=== PATIENT | male | born 1955 | race Caucasian/White ===

== ENCOUNTER 2020-04-23 08:34 | Outpatient (CLI) | payer SELFPAY ==
--- NOTE | 2020-04-23 09:01 | CT_ITS ---
WS: [id number] CT CHEST TECHNIQUE: Contrast enhanced CT of the chest with coronal and sagittal reformatted images. CLINICAL INFORMATION: SHORTNESS OF BREATH, HYPOXEMIA COMPARISON: None. DLP: 632.[address] scans at [facility] use at least one of these dose optimization techniques: automat ed exposure control; mA and/or kV adjustment per patient size (includes targeted exams where dose is matched to clinical indication); or iterative reconstruction. FINDINGS: Large left pleural effusion with left to right mediastinal shift. Opacification of the entire left he mithorax. Mediastinal shift left to right. Left to right shift of the heart. Large heterogeneously en hancing soft tissue mass along the anterior left upper lobe and mediastinum extending into the left t horacic inlet. This extends deep to the sternum. Findings are presumably due to neoplasm with necroti c and conglomerate lymphadenopathy. Masslike nodular lesions about the periphery of the left lower lung. Left lower lobe is collapsed med ially. Left mainstem bronchus is compressed and occluded. Mediastinal mass measures approximately 5.2 x 7.1 x 6.1 CM. Right lung is well aerated. Spiculated presumed neoplasm in the right upper lobe measuring 2.2 x 1.9 CM. Additional numerous smaller noncalcified nodules throughout the right lung, too many to count. Mo st are subcentimeter in size and consistent with metastatic disease. Fibrotic appearing infiltrate in the right middle lobe. Right mainstem bronchus is patent. Partially visualized left heterogeneously enhancing clavicular and supraclavicular lymphadenopathy. H eterogeneous enhancing left axillary masslike lymphadenopathy. Moderate aortic atheromatous disease. Thoracic aorta is patent. Proximal main pulmonary arteries are normal. Visualized thoracic spine appears normal. Notified MARISOL Meyer at 04/23/2020 11:00AM. Findings discussed with the patient and Dr. Garcia. After discussion with the patient decision was m zana to transfer to the [facility] [place] emergency room. 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 Prelim inary findings were discussed with Dr. Tan prior to arrival. 04/23/2020 11:[address]/CT chest w con* [id number] IMPRESSION: 1. Large left pleural effusion with complete opacification left hemithorax. Mo derate left right mediastinal shift described above. 2. Heterogeneous necrotic appearing mass in the left upper lobe extending into the anterior mediastinum and deep to the sternum most consistent with neoplasm with necrotic masslike lymphadenopathy. 3. Additional scattered nodular areas of metastatic implants about the periphe ry of the left lung. 4. Left supraclavicular and infraclavicular lymphadenopathy. Left axillary mas slike lymphadenopathy. 5. Spiculated mass in the right upper lobe measuring 2.2 x 1.9 cm presumably m alignancy. 6. Additional numerous noncalcified nodules throughout the right lung presumab ly metastatic most of which are subcentimeter in size. 7. Occlusion of the left mainstem bronchus.
[2020-04-23 10:14] LABS: Blood Urea Nitrogen 19 mg/dL (8-23); Glomerular Filtration Rate 85.2 mL/min (90-130)
[2020-04-23] MEDS: iohexol 300 mg/mL 100 mL Btl IV (10:16)
== END 2020-04-23 08:35 | disposition home or self-care (01) ==
PROVIDERS: Radiology Neuroradiology; Visit Provider Nurse Practitioner
DX: R91.8 Other nonspecific abnormal finding of lung field (principal); R06.02 Shortness of breath; R09.02 Hypoxemia; J90 Pleural effusion, not elsewhere classified; R59.1 Generalized enlarged lymph nodes
CPT/HCPCS: 71260; 82565; 84520; Q9967

== ENCOUNTER 2020-04-23 11:15 | Emergency (ER) | payer SELFPAY ==
[2020-04-23] VITALS (7 sets, daily range): BP systolic 117–150; BP diastolic 83–123; PULSE 79–103; RESP 20–40; TEMP 36.4; O2SAT 93–98; BMI 19.8
--- NOTE | 2020-04-23 11:34 | ECG_ITS ---
Measurements Intervals [place] Rate: 97 P: 65 NM: 148 QRS: 61 QRSD: 90 T: 58 QT: 337 QTc: 429 SINUS RHYTHM POSSIBLE LEFT ATRIAL ENLARGEMENT [-0.1mV P WAVE IN V1/V2] LOW QRS VOLTAGE IN PRECORDIAL LEADS [QRS DEFLECTION < 1.0 mV IN CHEST LEADS] NONSPECIFIC T-WAVE ABNORMALITY No previous ECG available for comparison Electronically Signed On 04-23-2020 18:55:10 CDT by Dariel Bates M.D. [email or web address]
--- NOTE | 2020-04-23 11:35 | W.ED.SOB ---
HPI - SOB/Dyspnea General: Chief Complaint: Shortness of Breath/Dyspnea Stated Complaint: SOB Time Seen by Provider: 04/23/20 11:20 History of Present Illness: HPI Narrative: This patient is a 64-year-old male who presents today with shortness of breath. He describes increasing shortness of breath over the past several weeks and the symptoms have been very severe in the past 2 to 3 days. He denies any prior history of lung problems but is a lifelong smoker. He has been to the clinic a couple of times and treated with antibiotics which did not help his symptoms. He said over the winter he has had a pretty constant runny nose and cough. He admits to weight loss over the past couple of months. He denies night sweats or fevers. He has had diarrhea since taking the antibiotics off and on but denies any other change in bowel habits. No trouble urinating. No rashes. He does not take any prescription medicines on a routine basis. He has been given the antibiotics, and albuterol inhaler, prednisone during the course of this illness. He had a chest x-ray yesterday and a chest CT today showing a large pleural effusion and probably some masses in the left lung. MD elicited complaint: shortness of breath and cough Onset (ago): week(s) (3) Associated symptoms: Deny chest pain or palpitations Review of Systems General: Reports: 10 or more systems reviewed and unremarkable except in HPI and below Const: Reports: change in appetite, change in weight and fatigue; Denies: night sweats ENMT: Denies: odynophagia Card: Denies: chest pain, palpitations, edema or swelling of feet/ankles Resp: Reports: dyspnea and productive cough GI: Reports: diarrhea : Denies: difficulty urinating Musc: Denies: back pain or extremity swelling Neuro: Denies: headache(s) or weakness in extremities PFS ED PFSH: Social History Smoking and tobacco status: current every day smoker Physical Exam Const: COMMON NORMALS: no acute distress, patient oriented x3, no limitations and alert GENERAL APPEARANCE: cooperative and comfortable NUTRITIONAL APPEARANCE: underweight HENMT: HEAD & SCALP: normal to inspection FACE & SINUS: normal facial exam Eye: GENERAL EYE: appearance normal, both eyes and all related structures Neck/C-Spine: COMMON NORMALS: supple, no meningeal signs and no JVD Chest: COMMONS NORMALS: normal inspection of the chest Resp: EFFORT & INSPECTION: Yes tachypneic and Yes uses accessory muscles AUSCULTATION: rhonchi (Right lung field) and breath sounds absent (Left lung field, few scattered wheezes in the upper lobe) Cardio: COMMON NORMALS: no JVD, regular rhythm and No murmurs present (Cardio) RATE: tachycardic RHYTHM: regular rhythm GI: COMMON NORMALS: Normal to inspection, nondistended, normoactive bowel sounds present, Soft to palpation and non-tender INSPECTION: Yes normal to inspection AUSCULTATION: Yes normoactive bowel sounds PALPATION: Yes Soft to palpation Back/Pelvis: COMMON NORMALS: thoracic and lumbar spine normal to inspection Extremity: COMMON NORMALS: normal to inspection Neuro: COMMON NORMALS: patient oriented x3, moves all extremities, no focal motor deficits and no sensory deficits noted SENSORIUM/ORIENTATION: Yes alert MENINGEAL SIGNS: Yes no meningeal signs Psych: COMMON NORMALS: mental status grossly normal, cooperative and normal affect Skin: COMMON NORMALS: no rashes or lesions noted and turgor normal GENERAL SKIN EXAM: no rashes or lesions noted and turgor normal Course ED course: I reviewed the patient's CT scan from this morning. He has a almost complete white out of the left lung field with fluid. He also has a necrotic mass in the left upper lobe extending into the anterior mediastinum. Lymph nodes in the supra clavicular, infraclavicular, and axillary areas. And in the right lung he has a spiculated nodule in the right upper lobe and multiple noncalcified nodules throughout the right lung. These are most consistent with malignancy. I will page Dr. Mc to get recommendations for treatment. The patient probably needs a thoracentesis for palliation and obviously needs evaluation by oncology as well. Reevaluation(s): Reevaluation #1: Dr. Mc saw the patient in the ED and placed a drain. This will remain in and the patient will have to have it drained daily. Case management and the financial counselors spent quite a bit of time working with the patient to establish home health and follow-up. He does not have insurance and he is being evaluated for the [facility]iana program. We were unable to set up home health over the weekend so the patient will be returning to the ED on Sunday and Sunday to have the tube drained. Hopefully Sunday he will be able to have home health come and do that for him. He has an appointment to follow-up with Dr. Mc on Sunday. After the drainage she did feel quite a bit better. He had a little bit of discomfort but declined pain medicines. His sats were good and he did not want to stay in the hospital. We will let him go home and he understands that he should return if he feels worse, has worse shortening breath, fever or any other problems. The fluid was sent for pathology. Time: 17:07 Vital Signs: Vital signs: Vital Signs Temperature 97.5 F L 04/23/20 11:22 Pulse Rate 79 04/23/20 16:46 Respiratory Rate 20 H 04/23/20 16:46 Blood Pressure 117/83 04/23/20 16:24 Pulse Oximetry 96 04/23/20 16:46 MDM - SOB/Dyspnea Lab Data: Labs: Lab Results 04/23/20 04/23/20 04/23/20 Range/Units 11:55 11:55 11:55 WBC 12.3 H (4.0-10.0) 10^3/ uL RBC 3.58 L (4.1-5.3) 10^6/u L Hgb 11.2 L (11.7-16.6) g/dL Hct 35.2 L (42.0-52.0) % MCV 98.3 H (80-94) fL MCH 31.3 (28.0-34.0) pg MCHC 31.8 (30.0-36.0) g/dL RDW 12.8 (12.1-15.1) % Plt Count 250 (130-400) 10^3/c mm MPV 8.9 (7.4-10.4) fL Neut % (Auto) 81.7 % Lymph % (Auto) 8.2 % [place] % (Auto) 9.1 % Eos % (Auto) 0.2 % Baso % (Auto) 0.4 % Neut # (Auto) 10.0 H (1.8-7.7) 10^3/u L Lymph # (Auto) 1.0 (0.8-4.8) 10^3/u L [place] # (Auto) 1.1 H (0.2-0.9) 10^3/u L Eos # (Auto) 0.0 (0.0-0.8) 10^3/u L Baso # (Auto) 0.1 (0.0-0.1) 10^3/u L Nucleated RBC % (a uto) 0 % Nucleated RBCs # 0.0 /100WBC PT (10.5-13.3) SECO NDS INR (0.8-1.2) Sodium 136 (136-145) mmol/L Potassium 4.5 (3.5-5.1) mmol/L Chloride 96 L (98-107) mmol/L Carbon Dioxide 27 (22-29) mmol/L Anion Gap 17.5 (5-19) BUN 19 (8-23) mg/dL Creatinine 0.7 (0.7-1.2) mg/dL GFR Calculation 113.9 (90-130) mL/min Glucose 103 (65-115) mg/dL Calculated Osmolal ity 279 L (285-295) mOsm/k g Lactate 2.5 H (0.5-2.2) mmol/L Calcium 8.9 (8.5-10.5) mg/dL Total Bilirubin 0.3 (0.15-1.2) mg/dL AST 17 (0-40) U/L ALT 18 (0-41) U/L Alkaline Phosphata se 85 (40-130) IU/L Troponin T Baselin e (0-15) ng/mL Troponin T 120 Min [place] (0-15) ng/mL Delta Troponin T (0-10) ABS# NT-Pro-B Natriuret Pep 225 H (0-125) pg/mL Total Protein 6.4 L (6.6-8.7) g/dL Albumin 3.8 (3.5-5.2) g/dL Globulin 2.6 (1.3-4.6) g/dL Fluid Color (PALE YELLOW) Fluid Appearance (CLEAR) Fluid WBC /uL Fluid RBC (0-0) 10^3/uL Fld Polynuclear WB Cs # 10^3/uL Fld Polynuclear WB Cs % % Fl Mononucl WBCs # (Auto) 10^3/uL Fl Mononuclear % A uto % Fluid Albumin g/dL Pleural LDH U/L Pleural Glucose mg/dL 04/23/20 04/23/20 04/23/20 Range/Units 11:55 11:55 14:00 WBC (4.0-10.0) 10^3/ uL RBC (4.1-5.3) 10^6/u L Hgb (11.7-16.6) g/dL Hct (42.0-52.0) % MCV (80-94) fL MCH (28.0-34.0) pg MCHC (30.0-36.0) g/dL RDW (12.1-15.1) % Plt Count (130-400) 10^3/c mm MPV (7.4-10.4) fL Neut % (Auto) % Lymph % (Auto) % [place] % (Auto) % Eos % (Auto) % Baso % (Auto) % Neut # (Auto) (1.8-7.7) 10^3/u L Lymph # (Auto) (0.8-4.8) 10^3/u L [place] # (Auto) (0.2-0.9) 10^3/u L Eos # (Auto) (0.0-0.8) 10^3/u L Baso # (Auto) (0.0-0.1) 10^3/u L Nucleated RBC % (a uto) % Nucleated RBCs # /100WBC PT 15.00 H (10.5-13.3) SECO NDS INR 1.15 (0.8-1.2) Sodium (136-145) mmol/L Potassium (3.5-5.1) mmol/L Chloride (98-107) mmol/L Carbon Dioxide (22-29) mmol/L Anion Gap (5-19) BUN (8-23) mg/dL Creatinine (0.7-1.2) mg/dL GFR Calculation (90-130) mL/min Glucose (65-115) mg/dL Calculated Osmolal ity (285-295) mOsm/k g Lactate (0.5-2.2) mmol/L Calcium (8.5-10.5) mg/dL Total Bilirubin (0.15-1.2) mg/dL AST (0-40) U/L ALT (0-41) U/L Alkaline Phosphata se (40-130) IU/L Troponin T Baselin e 15 (0-15) ng/mL Troponin T 120 Min [place] (0-15) ng/mL Delta Troponin T (0-10) ABS# NT-Pro-B Natriuret Pep (0-125) pg/mL Total Protein (6.6-8.7) g/dL Albumin (3.5-5.2) g/dL Globulin (1.3-4.6) g/dL Fluid Color Red (PALE YELLOW) Fluid Appearance Cloudy (CLEAR) Fluid WBC 1161 /uL Fluid RBC 716 H (0-0) 10^3/uL Fld Polynuclear WB Cs # 0.466 10^3/uL Fld Polynuclear WB Cs % 40.200 % Fl Mononucl WBCs # (Auto) 0.695 10^3/uL Fl Mononuclear % A uto 59.800 % Fluid Albumin 2.6 g/dL Pleural LDH 992 U/L Pleural Glucose 22.0 mg/dL 04/23/20 Range/Units 14:28 WBC (4.0-10.0) 10^3/ uL RBC (4.1-5.3) 10^6/u L Hgb (11.7-16.6) g/dL Hct (42.0-52.0) % MCV (80-94) fL MCH (28.0-34.0) pg MCHC (30.0-36.0) g/dL RDW (12.1-15.1) % Plt Count (130-400) 10^3/c mm MPV (7.4-10.4) fL Neut % (Auto) % Lymph % (Auto) % [place] % (Auto) % Eos % (Auto) % Baso % (Auto) % Neut # (Auto) (1.8-7.7) 10^3/u L Lymph # (Auto) (0.8-4.8) 10^3/u L [place] # (Auto) (0.2-0.9) 10^3/u L Eos # (Auto) (0.0-0.8) 10^3/u L Baso # (Auto) (0.0-0.1) 10^3/u L Nucleated RBC % (a uto) % Nucleated RBCs # /100WBC PT (10.5-13.3) SECO NDS INR (0.8-1.2) Sodium (136-145) mmol/L Potassium (3.5-5.1) mmol/L Chloride (98-107) mmol/L Carbon Dioxide (22-29) mmol/L Anion Gap (5-19) BUN (8-23) mg/dL Creatinine (0.7-1.2) mg/dL GFR Calculation (90-130) mL/min Glucose (65-115) mg/dL Calculated Osmolal ity (285-295) mOsm/k g Lactate (0.5-2.2) mmol/L Calcium (8.5-10.5) mg/dL Total Bilirubin (0.15-1.2) mg/dL AST (0-40) U/L ALT (0-41) U/L Alkaline Phosphata se (40-130) IU/L Troponin T Baselin e (0-15) ng/mL Troponin T 120 Min [place] 12.51 (0-15) ng/mL Delta Troponin T -2.49 L (0-10) ABS# NT-Pro-B Natriuret Pep (0-125) pg/mL Total Protein (6.6-8.7) g/dL Albumin (3.5-5.2) g/dL Globulin (1.3-4.6) g/dL Fluid Color (PALE YELLOW) Fluid Appearance (CLEAR) Fluid WBC /uL Fluid RBC (0-0) 10^3/uL Fld Polynuclear WB Cs # 10^3/uL Fld Polynuclear WB Cs % % Fl Mononucl WBCs # (Auto) 10^3/uL Fl Mononuclear % A uto % Fluid Albumin g/dL Pleural LDH U/L Pleural Glucose mg/dL EKG Data^: EKG 1: EKG Interpretation Date: 04/23/20 EKG interpretation time: 11:45 Interpretation: EKG shows a sinus rhythm at 97. There is atrial enlargement. NE and QRS intervals are normal. QTc is normal. [place] is normal and there is no acute ST changes. Discharge Plan Discharge Patient Disposition: Home, Self-Care Clinical Impression: Large pleural effusion Lung cancer Qualifiers: Laterality: unspecified laterality Lung location: unspecified part of lung Qualified Code(s): C34.90 - Malignant neoplasm of unspecified part of unspecified bronchus or lung Condition: Stable Prescriptions: No Action No Known Home Medications RF: 0 Discharge Orders: Discharge Order (Routine); Ordered 04/23/20 Ordered By: Kusum Green Referrals: Fiona Mc MD [Physician] - 04/27/20 1:30 pm Discharge Diet: Usual diet Discharge Activity: Limit activity as instructed Patient Instructions: Pleural Effusion (ED) Activity Restrictions/Additional Instructions: Return to the ED tomorrow and Sunday to have the fluid drained. Hopefully home health will be set up to take care of it after that. Return to the ED if trouble breathing, pain, fever or any other new concerns. Discharge Date/Time: 04/23/20 16:51 Coding Level of Care Code ED Lemon Picker for Leonila Fwd Exam Comprehensive
[2020-04-23 12:05] LABS: Basophils # 0.1 10^3/uL (0.0-0.1); Basophils % 0.4 %; Eosinophils % 0.2 %; Hematocrit 35.2 % (42.0-52.0); Hemoglobin 11.2 g/dL (11.7-16.6); Lymphocytes % 8.2 %; Mean Corpuscular HGB Conc 31.8 g/dL (30.0-36.0); Mean Corpuscular Hemoglobin 31.3 pg (28.0-34.0); Mean Corpuscular Volume 98.3 fL (80-94); Mean Platelet Volume 8.9 fL (7.4-10.4); Monocytes # 1.1 10^3/uL (0.2-0.9); Monocytes % 9.1 %; Neutrophils % 81.7 %; Nucleated Red Blood Cells % 0 %; Platelet Count 250 10^3/cmm (130-400); Red Blood Count 3.58 10^6/uL (4.1-5.3); Red Cell Distribution Width 12.8 % (12.1-15.1); White Blood Count 12.3 10^3/uL (4.0-10.0)
[2020-04-23 12:15] LABS: INR 1.15 (0.8-1.2)
[2020-04-23 12:20] LABS: Lactate (Lactic Acid level) 2.5 mmol/L (0.5-2.2)
[2020-04-23 12:22] LABS: Alanine Aminotransferase 18 U/L (0-41); Albumin Level 3.8 g/dL (3.5-5.2); Alkaline Phosphatase 85 IU/L (40-130); Anion Gap 17.5 (5-19); Aspartate Amino Transferase 17 U/L (0-40); Blood Urea Nitrogen 19 mg/dL (8-23); Calcium 8.9 mg/dL (8.5-10.5); Carbon Dioxide 27 mmol/L (22-29); Chloride 96 mmol/L (98-107); Globulin 2.6 g/dL (1.3-4.6); Glomerular Filtration Rate 113.9 mL/min (90-130); Glucose 103 mg/dL (65-115); Osmolality Calculated 279 mOsm/kg (285-295); Potassium 4.5 mmol/L (3.5-5.1); Sodium 136 mmol/L (136-145); Total Bilirubin 0.3 mg/dL (0.15-1.2); Total Protein 6.4 g/dL (6.6-8.7)
[2020-04-23 12:24] LABS: Troponin(5th) Baseline 15 ng/mL (0-15)
[2020-04-23 12:43] LABS: NT Pro B Type Natriuretic Pept 225 pg/mL (0-125)
--- NOTE | 2020-04-23 12:55 | P.CONIM_ITS ---
Providers/Reason For Consult Consulting Physican/Specialty*: Pulmonary critical care medicine Reason for Consult*: Tension hydrothorax of the left side History of Present Illness History of Present Illness Hu Aguilera is a 64 year old male who presented to the hospital with worsening shortness of breath and radiologic abnormalities. The patient has an extensive history of smoking and he had given up smoking recently. The patient has been suffering from chronic cough that he has suffered for many years. Over the past 3 weeks or so the patient started having progressively worsening shortness of breath. The patient was initially treated for bronchitis however he did not have any significant improvement. The patient went to see his primary care provider yesterday and was ordered a chest x-ray. The patient presents today with radiologic abnormalities. The patient does not give any significant history of fever, night sweats, chills. No significant weight loss however he endorses loss of appetite. No history of hemoptysis. The patient had a CT scan of the chest performed today which revealed large left sided pleural effusion with mediastinal shift to the right. There is a large heterogeneous enhancing soft tissue mass along the anterior left upper lobe extending into the thoracic inlet. There is a masslike density in the left hilum with likely compression occlusion of left mainstem bronchus. There is an additional right upper lobe lung nodule which is spiculated and likely the same process. Patient also has left supraclavicular and axillary lymphadenopathy. Review of Systems Narrative: General: No fevers chills night sweats or fatigue Skin: No rash HEENT: No nasal congestion, rhinitis, sinusitis, sneezing, hoarseness of voice. Neck: There is no neck swelling, mass or swollen glands. Respiratory: Please see my HPI. Cardiovascular: No chest pain, palpitation, lower extremity edema Gastrointestinal: Patient is complaining of diarrhea Musculoskeletal: No joint pain or swelling, muscle weakness, morning stiffness, numbness or tingling. Neurological: Patient is awake alert and oriented x3, no paralysis, gross motor function is normal. Psychiatric: No anxiety or depression. Meds/Allergies Home Medications and Allergies Home Medications Medication Instructions Recorded Confirmed Last Taken Type No Known Home Medications 04/23/20 04/23/20 Unknown History Allergies Allergy/AdvReac Type Severity Reaction Status Date / Time No Known Allergies Allergy Verified 04/03/20 14:15 PFSH Acute PFSH: Social History Smoking and tobacco status: current every day smoker Vitals/I&O/Wt Last Vital Signs Temp 97.5 F L 04/23/20 11:22 Pulse 98 04/23/20 12:16 Resp 36 H 04/23/20 12:16 BP 132/99 04/23/20 12:16 Pulse Ox 98 04/23/20 12:16 Weight last 48 hrs Weight 138 lb Physical Exam Narrative: EXAM NARRATIVE: General: Patient is awake alert and oriented, in mild distress Neck: No JVD, palpable left supraclavicular lymphadenopathy. Lymph nodes are hard and appears to be fixed with underlying structure Respiratory: Inspection: No visible deformity of the chest wall Palpation: Trachea is deviated to the right, reduced expansion on the left side, minimal vocal fremitus on the left side Percussion: Stony dull to percussion on the left hemithorax Auscultation: Reduced breath sound in the left hemithorax, reduced vocal resonance in the same area, no wheezing or rhonchi on the right side Cardiovascular: Regular rate and rhythm, S1-S2 present, no murmur, no right ventricular heave, no peripheral edema. Abdomen: Soft, nontender, nondistended, positive bowel sound Musculoskeletal: No obvious joint deformity, normal gait. Skin: No rash, no evidence of erythema nodosum or multiforme. Neuro: Mental status is normal, no gross cranial nerve deficit, normal motor and coordination. Data Other Data: Other data: I have reviewed the patient's laboratory, microbiologic, radiologic data. The CT scan findings it is described in my HPI. Has mild leukocytosis however no definitive evidence of infection based on the history. A&P Assessment and plan (1) Large pleural effusion: The patient has left-sided pleural effusion and is most likely malignant. The patient has necrotic left anterior mediastinal and hilar lung mass as well as spiculated nodule on the right lung. The patient also has evidence of tension hydrothorax including mediastinal shift to the right side. This is important for several reasons. The presence of large left-sided pleural effusion is likely a combination of 2 processes. #1, the patient most likely has malignant pleural effusion and based on the CT scan it appears that there is external compression to the left mainstem bronchus. The presence of mediastinal shift represents that the pleural effusion is the primary pathology for the lung atelectasis or at least contributing to it. If the patient had lung atelectasis secondary to the mainstem bronchus compression the resultant pleural effusion would not cause the mediastinum to shift to the opposite side. I have discussed the care plan with the patient in detail. I have provided him with 3 options. #1 we perform a thoracentesis, send the fluid for cytology and discharge him home. This is likely to be complicated by reaccumulation of pleural effusion and shortness of breath. #2 we could get a pigtail catheter placed and as this pleural effusion is likely malignant the fluid will continue to accumulate and the patient will spend a significant duration of time in the hospital. The patient does not want to stay in the hospital so I have provided him with a third option. We have discussed putting in a Pleurx catheter which can be drained today and the patient can be discharged home and the fluid can be continue to be drained at home. The pleural fluid is likely to give us a diagnosis. As soon as we have a diagnosis the patient is likely going to need radiation therapy because of the left mainstem bronchus compression. After discussion, the patient has decided to go ahead with a Pleurx catheter placement today. He will follow-up with me early next week. At that time if we do not have a cytologic diagnosis I will perform a fine-needle aspiration of a supraclavicular or axillary lymph node. I have discussed the plan with the ED physician as well. Status: Acute Coding Level of Care Code Acute Pattern Maker for [facility] Diagnoses Large pleural effusion J90
[2020-04-23] MEDS: midazolam 1 mg/mL INJ 2 mL 2 MG IVP (13:24)
[2020-04-23] MEDS: fentaNYL 50 mcg/mL INJ 2mL IVP (13:27)
--- NOTE | 2020-04-23 14:09 | XRR_ITS ---
PROCEDURE INFORMATION: Exam: XR Chest, 1 View Exam date and time: 04/23/2020 2:26 PM Age: 64 years old Clinical indication: Device placement; Other: Chest tube; Additional info: Tube placement TECHNIQUE: Imaging protocol: XR of the chest Views: 1 view. COMPARISON: CT chest w con* [id number] 04/23/2020 10:24 AM FINDINGS: Lungs: Spiculated mass is seen in the right upper lobe between the 6th and 7th posterior rib. This finding is noncalcified and measures 23 mm x 26 mm. This finding corresponds to a mean spiculated mass seen on CT examination . This finding corresponds to lung cancer there is otherwise . No consolidation. Pleural space: Large left lower lobe pleural effusion. No pneumothorax. Heart/Mediastinum: Unremarkable. No cardiomegaly. Bones/joints: Unremarkable. XR/XR chest 1V portable [id number] IMPRESSION: 1. Stable spiculated mass right upper lobe likely lung cancer 2. Large left lower lobe pleural effusion
--- NOTE | 2020-04-23 14:26 | P.PCN_ITS ---
Procedure/Consent Time out: Time Out Performed: Yes Consent: Consent for Procedure: Consent obtained from patient Procedure Narrative: Name of the procedure: Left-sided Pleurx catheter placement Anesthesia: Moderate sedation Local: 1% lidocaine 13 mL. Description of the procedure: The patient was placed in right lateral position. Using the ultrasound a safe fluid pocket was identified in the left eighth in tercostal space in the midaxillary line. The site was marked. The patient was then prepared using sterile technique. 1% lidocaine was used to anesthetize the skin and subcutaneous tissue periosteum and the pleural space was entered. Serosanguineous fluid was aspirated. The introducer needle was then introduced into the pleural space. The guide wire was introduced and left in place. About 6 cm from the initial introduction site in the anterolateral chest wall a second incision was made. The pleural catheter was then tunneled under the skin with the help of a trocar. The initial site was then dilated and the Pleurx catheter was advanced into the pleural space without any difficulty. The incision sites were sutured. There was good hemostasis. 2000 cc of serosanguineous fluid was drained. Complications: None Sample: 1. Profound was sent for cell count and differential, protein, pH, LDH, albumin, cytology, Gram stain culture, fungal stain culture, AFB stain and culture. Chest x-ray: 1. Improved aeration of the left lung. Still a significant amount of pleural effusion is left. The mediastinal shift is not present anymore. Follow-up: 1. The patient will follow-up with me in this coming Sunday. Acute Procedures Epistaxis Control: Time out performed: Yes
--- NOTE | 2020-04-23 14:41 | PC.NURSE ---
Sushil drain placement performed by Dr Mc documented by GI lab nurses jeanne & elian2 and scanned into chart.
[2020-04-23 14:51] LABS: Troponin 5 2HR 12.51 ng/mL (0-15)
[2020-04-23 14:52] LABS: Troponin 5 2HR Delta -2.49 ABS# (0-10)
--- NOTE | 2020-04-23 14:53 | DCPLANNER ---
manager community development was asked to set up home health services for patient. manager community development spoke with patient, he stated that he does not have insurance. manager community development called patient accounts, spoke with Rena, about the financial assistance, asked if she could come screen the patient for the financial assistance for hospital. She stated that someone would come to the ER and speak with patient, Maddie, came to ER spoke with patient and worked on application with patient. manager community development then called [facility], spoke with Aguilar, was told that the home health could not get patient started on services this weekend. manager community development told patient that he is to go the ED over the weekend to have his tube drained, then he is to follow up with Dr. Mc on Sunday. manager community development called [facility], spoke with Gisele, a follow up appointment is scheduled for patient for Monday, April 27, 2020 at 1:30. manager community development informed ED physician and patient of the scheduled appointment.
[2020-04-23 14:55] LABS: Body Fluid Polynuclear #Cells 0.466 10^3/uL; Body Fluid WBC 1161 /uL; Monocytes # Body Fluid 0.695 10^3/uL; RBC, Body Fluid 716 10^3/uL (0-0)
[2020-04-23 15:15] LABS: Albumin Body Fluid 2.6 g/dL; Apprearance, Body Fluid CLOUDY (CLEAR); LDH Pleural Fluid 992 U/L
[2020-04-23 16:49] LABS: Color, Body Fluid RED (PALE YELLOW)
--- NOTE | 2020-04-23 17:34 | ECG_ITS ---
Measurements Intervals [place] Rate: 83 P: 59 NH: 159 QRS: 58 QRSD: 89 T: 55 QT: 362 QTc: 427 SINUS RHYTHM LOW QRS VOLTAGE IN PRECORDIAL LEADS [QRS DEFLECTION < 1.0 mV IN CHEST LEADS] NONSPECIFIC T-WAVE ABNORMALITY No previous ECG available for comparison Electronically Signed On 04-23-2020 19:02:16 CDT by Dariel Bates M.D. [email or web address]
[2020-04-24 11:51] LABS: Total Protein Body Fluid 4 g/dL
== END 2020-04-23 16:51 | disposition home or self-care (01) ==
PROVIDERS: Internal Medicine Critical Care Medicine; Emergency Provider Emergency Medicine
DX: J90 Pleural effusion, not elsewhere classified (principal); C34.90 Malignant neoplasm of unspecified part of unspecified bronchus or lung; F17.210 Nicotine dependence, cigarettes, uncomplicated
CPT/HCPCS: 12345; 36415; 71045; 80053; 80500; 82042; 82945; 83605; 83615; 83880; 83986; 84157; 84484; 85025; 85610; 87070; 87075; 87205; 88112; 88305; 89050; 93005; 96374; 96375; 99282; 99285; C1729; J2250; J3010

== ENCOUNTER 2020-04-24 14:13 | Emergency (ER) | payer SELFPAY ==
[2020-04-24 14:20] VITALS: BP 101/68; PULSE 98; RESP 14; TEMP 37.6; O2SAT 95; BMI 19.8
--- NOTE | 2020-04-24 14:35 | XRR_ITS ---
PROCEDURE INFORMATION: Exam: XR Chest, 1 View Exam date and time: 04/24/2020 2:35 PM Age: 64 years old Clinical indication: Shortness of breath; Additional info: Dyspnea TECHNIQUE: Imaging protocol: XR of the chest Views: 1 view. COMPARISON: CR XR chest 1V portable [id number] 04/23/2020 2:[address] chest examination 04/23/2020 FINDINGS: Lungs: There is left perihilar and upper lobe vascular and interstitial congestion increased since prior examination. There is a right perihilar noncalcified mass measuring 26.4 mm. This finding is stable compared to prior and is consistent with a lung tumor Pleural space: Large left lower lobe pleural effusion. No pneumothorax. Heart/Mediastinum: Unremarkable. No cardiomegaly. Bones/joints: Unremarkable. XR/XR chest 1V portable [id number] IMPRESSION: 1. Diffuse interstitial congestion left perihilar and upper lobe new since prior 2. A stable mass lesion right perihilar region consistent with lung tumor 3. Stable large left lung pleural effusion
--- NOTE | 2020-04-24 14:43 | W.ED.GENADLT ---
HPI - General Adult General: Chief complaint: General Medical Stated complaint: needs fluid drained Time Seen by Provider: 04/24/20 14:35 Source: patient Mode of arrival: ambulatory Limitations: no limitations History of Present Illness: HPI narrative: Patient is a 64-year-old male that has a history of a large pleural effusion and had a [place] drain placed by pulmonology yesterday. Patient was told return to the ER today to have the Tarrant drain drained again. He has no complaints and states his dyspnea is improved greatly. He denies any fever or pain currently. Associated symptoms: Deny chest pain, dyspnea, headache(s), nausea, rash or vomiting Review of Systems Const: Denies: fever(s), chills, body aches or change in appetite Eyes: Denies: blurry vision or eye discomfort ENMT: Denies: throat pain or dental pain Card: Denies: chest pain Resp: Denies: dyspnea GI: Denies: abdominal pain, nausea, vomiting or diarrhea : Denies: dysuria Musc: Denies: neck pain or back pain Skin/Breast: Denies: rash Neuro: Denies: headache(s) Psych: Denies: depression Duong/Lymph: Denies: easy bruising All/Imm: Denies: urticaria PFSH ED PFSH: Social History Smoking and tobacco status: former smoker Physical Exam Const: COMMON NORMALS: no acute distress, patient oriented x3 and healthy appearing HENMT: COMMON NORMALS: normocephalic and atraumatic HEAD & SCALP: normocephalic and atraumatic Eye: COMMON NORMALS: Equal, round and reactive pupils present and EOMs intact bilaterally PUPIL: Yes Equal, round and reactive pupils present Neck/C-Spine: COMMON NORMALS: full ROM and supple Chest: COMMONS NORMALS: normal inspection of the chest and normal palpation of entire chest wall OTHER: Tarrant drain in place Resp: COMMON NORMALS: normal respiratory effort, No retractions, No use of accessory muscles and clear to auscultation bilaterally AUSCULTATION: clear to auscultation bilaterally Cardio: COMMON NORMALS: regular rate, regular rhythm and No murmurs present (Cardio) RATE: regular rate RHYTHM: regular rhythm GI: COMMON NORMALS: Normal to inspection, nondistended, normoactive bowel sounds present, Soft to palpation, non-tender and no masses PALPATION: Yes Soft to palpation Extremity: COMMON NORMALS: normal to inspection and full ROM Neuro: COMMON NORMALS: patient oriented x3, moves all extremities and no focal motor deficits Psych: COMMON NORMALS: mental status grossly normal, Normal thought process present and cooperative THOUGHT PROCESS: Normal thought process present Skin: COMMON NORMALS: no rashes or lesions noted and no wounds GENERAL SKIN EXAM: no rashes or lesions noted Course Vital Signs: Vital signs: Vital Signs Temperature 99.6 F 04/24/20 14:20 Pulse Rate 98 04/24/20 14:20 Respiratory Rate 18 04/24/20 14:44 Blood Pressure 101/68 04/24/20 14:20 Pulse Oximetry 95 04/24/20 14:20 MDM - General Adult MDM Narrative: Medical decision making narrative: Patient presents here with a pleural effusion. He does have a drain in place we did use a drain and drain that left lung. He is to follow-up with Dr. Mc in 2 days as scheduled. Imaging Data^: CXR: Attestation: I personally reviewed and interpreted this imaging study as follows: My impression: Left pleural effusion noted Discharge Plan Discharge Patient Disposition: Home, Self-Care Clinical Impression: Large pleural effusion Condition: Stable Prescriptions: No Action ibuprofen 200 mg Tablet 200 mg PO Q6H PRN (Reason: Pain) RF: 0 Mucinex 600 mg Tablet Extended Release 12hr 600 mg PO Q12H PRN (Reason: Congestion) RF: 0 Discharge Orders: Discharge Order (Routine); Ordered 04/24/20 Ordered By: Jed Tan Discharge Diet: Advance as tolerated Discharge Activity: Resume usual activity Patient Instructions: Pleural Effusion (ED) Coding Level of Care Code ED Line Mover for Chg Fwd Exam Comprehensive
[2020-04-24 14:44] VITALS: RESP 18
[2020-04-24 16:03] VITALS: BP 124/60; PULSE 88; RESP 18; TEMP 36.7; O2SAT 96
== END 2020-04-24 16:06 | disposition home or self-care (01) ==
PROVIDERS: Emergency Provider Emergency Medicine
DX: J90 Pleural effusion, not elsewhere classified (principal); Z87.891 Personal history of nicotine dependence
CPT/HCPCS: 12345; 71045; 99281; 99283

== ENCOUNTER 2020-04-25 13:25 | Emergency (ER) | payer SELFPAY ==
[2020-04-25 13:29] VITALS: BP 105/63; PULSE 91; RESP 18; TEMP 36.5; O2SAT 96; BMI 19.3
--- NOTE | 2020-04-25 13:32 | XRR_ITS ---
PROCEDURE INFORMATION: Exam: XR Chest, 1 View Exam date and time: 04/25/2020 1:32 PM Age: 64 years old Clinical indication: Other: Effusion TECHNIQUE: Imaging protocol: XR of the chest Views: 1 view. COMPARISON: CR (CHEST, ) 04/24/2020 2:59 PM FINDINGS: Lungs: Left pleural effusion with adjacent compressive atelectasis and/or pneumonia, improved when compared to the prior study. COPD morphology of the chest. Right perihilar nodular density measures 2.2 cm similar to the prior study. Pleural space: There is a chest tube overlying the left pleural effusion. Heart/Mediastinum: Heart size not optimally evaluated with a single AP view of the chest. Bones/joints: Unremarkable. XR/XR chest 1V portable [id number] IMPRESSION: 1. Left pleural effusion with adjacent compressive atelectasis and/or pneumonia, improved when compared to the prior study. 2. Right perihilar nodular density measures 2.2 cm similar to the prior study.
--- NOTE | 2020-04-25 13:38 | W.ED.GENADLT ---
HPI - General Adult General: Chief complaint: General Medical Stated complaint: sore on back Time Seen by Provider: 04/25/20 13:32 Source: patient Mode of arrival: ambulatory Limitations: no limitations History of Present Illness: HPI narrative: 64-year-old male who had a Sushil drain placed [address] Mc is wanting to come to ER to have it drained until he sees him in office tomorrow. Patient has no new complaints. He denies any fevers. States his shortness of breath has improved. Associated symptoms: Deny chest pain, dyspnea, headache(s), nausea, rash or vomiting Review of Systems Const: Denies: fever(s), chills, body aches or change in appetite Eyes: Denies: blurry vision or eye discomfort ENMT: Denies: throat pain or dental pain Card: Denies: chest pain Resp: Denies: dyspnea GI: Denies: abdominal pain, nausea, vomiting or diarrhea : Denies: dysuria Musc: Denies: neck pain or back pain Skin/Breast: Denies: rash Neuro: Denies: headache(s) Psych: Denies: depression Duong/Lymph: Denies: easy bruising All/Imm: Denies: urticaria PFSH ED PFSH: Social History Smoking and tobacco status: former smoker Physical Exam Const: COMMON NORMALS: no acute distress, patient oriented x3 and healthy appearing HENMT: COMMON NORMALS: normocephalic and atraumatic HEAD & SCALP: normocephalic and atraumatic Eye: COMMON NORMALS: Equal, round and reactive pupils present and EOMs intact bilaterally PUPIL: Yes Equal, round and reactive pupils present Neck/C-Spine: COMMON NORMALS: full ROM and supple Chest: COMMONS NORMALS: normal inspection of the chest and normal palpation of entire chest wall Resp: COMMON NORMALS: normal respiratory effort, No retractions, No use of accessory muscles and clear to auscultation bilaterally AUSCULTATION: clear to auscultation bilaterally Cardio: COMMON NORMALS: regular rate, regular rhythm and No murmurs present (Cardio) RATE: regular rate RHYTHM: regular rhythm GI: COMMON NORMALS: Normal to inspection, nondistended, normoactive bowel sounds present, Soft to palpation, non-tender and no masses PALPATION: Yes Soft to palpation Extremity: COMMON NORMALS: normal to inspection and full ROM Neuro: COMMON NORMALS: patient oriented x3, moves all extremities and no focal motor deficits Psych: COMMON NORMALS: mental status grossly normal, Normal thought process present and cooperative THOUGHT PROCESS: Normal thought process present Skin: COMMON NORMALS: no rashes or lesions noted and no wounds GENERAL SKIN EXAM: no rashes or lesions noted Course Vital Signs: Vital signs: Vital Signs Temperature 97.7 F 04/25/20 13:29 Pulse Rate 91 04/25/20 13:29 Respiratory Rate 18 04/25/20 13:29 Blood Pressure 105/63 04/25/20 13:29 Pulse Oximetry 96 04/25/20 13:29 MDM - General Adult MDM Narrative: Medical decision making narrative: Patient presents here with pleural effusion. [place] drain is in place and drained effusion out of the lung. Patient stable for discharge and to follow-up with Dr. Mc scheduled tomorrow. Discharge Plan Discharge Patient Disposition: Home, Self-Care Clinical Impression: Large pleural effusion Condition: Stable Prescriptions: No Action ibuprofen 200 mg Tablet 200 mg PO Q6H PRN (Reason: Pain) RF: 0 Mucinex 600 mg Tablet Extended Release 12hr 600 mg PO Q12H PRN (Reason: Congestion) RF: 0 Discharge Orders: Discharge Order (Routine); Ordered 04/25/20 Ordered By: Jed Tan Referrals: Fiona Mc MD [Physician] - 1-3 days Discharge Diet: Advance as tolerated Discharge Activity: Resume usual activity Patient Instructions: Pleural Effusion (ED) Coding Level of Care Code ED Medical Records Clerk for Chg Fwd Exam Comprehensive
--- NOTE | 2020-04-25 14:19 | PC.NURSE ---
Patient reports to ED for [place] drain care. Patient had sushil drain placed two days ago and is having fluid drawn off in ED until home health is able to set up care for patient. Per [employer] [place] Drain was accessed and 1800mL was pulled off using 2 Sushil Drain kits. Patient tolerated procedure very well. Area cleansed per protocol and site was redressed.
[2020-04-25 14:41] VITALS: BP 103/59; PULSE 85; RESP 18; O2SAT 94
== END 2020-04-25 14:43 | disposition home or self-care (01) ==
PROVIDERS: Emergency Provider Emergency Medicine
DX: J90 Pleural effusion, not elsewhere classified (principal); Z87.891 Personal history of nicotine dependence
CPT/HCPCS: 12345; 71045; 99281; 99283

== ENCOUNTER 2020-04-26 12:43 | Emergency (ER) | payer SELFPAY ==
[2020-04-26 12:49] VITALS: BP 91/59; PULSE 95; RESP 14; TEMP 36.8; O2SAT 95; BMI 19.8
--- NOTE | 2020-04-26 12:54 | W.ED.GENADLT ---
HPI - General Adult General: Chief complaint: General Medical Stated complaint: LUNG NEEDS DRAINED Time Seen by Provider: 04/26/20 12:54 Source: patient Mode of arrival: ambulatory Limitations: no limitations History of Present Illness: HPI narrative: 64-year-old male who was seen here last week and had a Garret[place] drain placed for large pleural effusion. Patient was supposed to have home health come and drain it today but they did not. Patient denies any pain or shortness of breath. Associated symptoms: Deny chest pain, dyspnea, headache(s), nausea, rash or vomiting Review of Systems Const: Denies: fever(s), chills, body aches or change in appetite Eyes: Denies: blurry vision or eye discomfort ENMT: Denies: throat pain or dental pain Card: Denies: chest pain Resp: Denies: dyspnea GI: Denies: abdominal pain, nausea, vomiting or diarrhea : Denies: dysuria Musc: Denies: neck pain or back pain Skin/Breast: Denies: rash Neuro: Denies: headache(s) Psych: Denies: depression Duong/Lymph: Denies: easy bruising All/Imm: Denies: urticaria PFSH ED PFSH: Social History Smoking and tobacco status: former smoker Physical Exam Const: COMMON NORMALS: no acute distress, patient oriented x3 and healthy appearing HENMT: COMMON NORMALS: normocephalic and atraumatic HEAD & SCALP: normocephalic and atraumatic Eye: COMMON NORMALS: Equal, round and reactive pupils present and EOMs intact bilaterally PUPIL: Yes Equal, round and reactive pupils present Neck/C-Spine: COMMON NORMALS: full ROM and supple Chest: COMMONS NORMALS: normal inspection of the chest and normal palpation of entire chest wall OTHER: melvina drain inplace Resp: COMMON NORMALS: normal respiratory effort, No retractions, No use of accessory muscles and clear to auscultation bilaterally AUSCULTATION: clear to auscultation bilaterally Cardio: COMMON NORMALS: regular rate, regular rhythm and No murmurs present (Cardio) RATE: regular rate RHYTHM: regular rhythm GI: COMMON NORMALS: Normal to inspection, nondistended, normoactive bowel sounds present, Soft to palpation, non-tender and no masses PALPATION: Yes Soft to palpation Extremity: COMMON NORMALS: normal to inspection and full ROM Neuro: COMMON NORMALS: patient oriented x3, moves all extremities and no focal motor deficits Psych: COMMON NORMALS: mental status grossly normal, Normal thought process present and cooperative THOUGHT PROCESS: Normal thought process present Skin: COMMON NORMALS: no rashes or lesions noted and no wounds GENERAL SKIN EXAM: no rashes or lesions noted Course Vital Signs: Vital signs: Vital Signs Temperature 98.2 F 04/26/20 12:49 Pulse Rate 95 04/26/20 12:49 Respiratory Rate 14 04/26/20 12:49 Blood Pressure 91/59 04/26/20 12:49 Pulse Oximetry 95 04/26/20 12:49 MDM - General Adult MDM Narrative: Medical decision making narrative: Patient presents with a pleural effusion that is been drained here in the ER. Garretson drain was drained again and x-ray is improving. Patient has appointment with malted milk supervisor tomorrow. He is stable for discharge is return if worsening. Discharge Plan Discharge Patient Disposition: Home, Self-Care Clinical Impression: Large pleural effusion Condition: Stable Prescriptions: No Action ibuprofen 200 mg Tablet 200 - 800 mg PO PRN PRN (Reason: Pain) RF: 0 guaifenesin [Mucinex] 600 mg Tablet Extended Release 12hr 600 mg PO Q12H PRN (Reason: Congestion) RF: 0 albuterol sulfate 90 mcg/actuation HFA aerosol inhaler 2 puff INHALATION Q4H PRN (Reason: Shortness Of Breath) RF: 0 Discharge Orders: Discharge Order (Routine); Ordered 04/26/20 Ordered By: Jed Tan Discharge Diet: Advance as tolerated Discharge Activity: Resume usual activity Patient Instructions: Pleural Effusion (ED) Coding Level of Care Code ED [facility] Counselor for Chg Fwd Exam Comprehensive
--- NOTE | 2020-04-26 13:12 | XR_ITS ---
WS: [id number] XR chest 1V portable [id number] REASON FOR EXAM: dyspnea FINDINGS: Hyper aerated lungs are seen bilaterally. Left pleural effusion extends to the sixth inters pace on the left. In the mid right chest there is a nodular density this was seen on previous exam of April 25, 2020. And appear to be a neoplasm on the CT dated April 23, 2020. The pleural effusion on the left is markedly improved since the previous CT. XR/XR chest 1V portable [id number] IMPRESSION: Improved left pleural effusion now extends to the sixth interspace The mass defect in the mid right chest is unchanged. There is chronic obstructive pulmonary disease.
--- NOTE | 2020-04-26 14:20 | PC.NURSE ---
ELVA DRAIN ATTACHED TO DRAIN BOTTLE USING STERILE TECHNIQUE. PT TOLERATING WELL. NO C/O PAIN.
[2020-04-26 14:30] VITALS: BP 118/68; PULSE 75; RESP 18; O2SAT 98
--- NOTE | 2020-04-26 15:30 | PC.NURSE ---
ONE ELVA DRAIN KIT 1000ML USED.
== END 2020-04-26 14:35 | disposition home or self-care (01) ==
PROVIDERS: Emergency Provider Emergency Medicine
DX: J90 Pleural effusion, not elsewhere classified (principal); Z87.891 Personal history of nicotine dependence
CPT/HCPCS: 12345; 71045; 99281; 99282

== ENCOUNTER 2020-04-28 12:40 | Emergency (ER) | payer SELFPAY ==
[2020-04-28 12:47] VITALS: BP 106/66; PULSE 80; RESP 17; TEMP 36.6; O2SAT 97; BMI 19.8
[2020-04-28 12:55] VITALS: BP 106/66; PULSE 86; RESP 16; O2SAT 95
--- NOTE | 2020-04-28 13:03 | ED_ITS ---
HPI - General Adult General: Chief complaint: General Medical Stated complaint: FLUID BUILD UP Time Seen by Provider: 04/28/20 12:53 History of Present Illness: HPI narrative: Patient comes in for drainage of a pleural effusion in the left lung from a [place] catheter. Patient has been coming in daily for pleural effusion. Patient has been recommended to have it done every other day. Patient is to see welder apprentice combination on Sunday the for repeat evaluation, patient had seen him yesterday. Patient denies any fever or other complaints. Review of Systems General: Reports: 10 or more systems reviewed and unremarkable except in HPI and below PFSH ED PFSH: Social History Smoking and tobacco status: former smoker Quit status (tobacco): has quit using tobacco Year quit tobacco: 2019 - 1.5 PPD x 45 Years Alcohol intake: current Alcohol intake frequency: holidays/special occasions only Lives independently: Yes Household members: none Marital status: Current occupational status: employed Current occupation: Self-Employed History of recent travel: No Current gender identity: Male Physical Exam Const: COMMON NORMALS: no acute distress and patient oriented x3 GENERAL APPEARANCE: cooperative HENMT: COMMON NORMALS: normocephalic, TM's normal bilaterally and Normal external nose present HEAD & SCALP: normal to inspection and normocephalic NOSE: Normal external nose present TYMPANIC MEMBRANE: TM's normal bilaterally MOUTH: Normal oral and palatal mucosa present THROAT: posterior oropharynx normal Eye: GENERAL EYE: appearance normal, both eyes and all related structures Neck/C-Spine: COMMON NORMALS: full ROM Lymph: LYMPHATIC: no lymphadenopathy noted Chest: OTHER: Sutures are intact to the left lateral drainage tube and site. No redness is noted surrounding the incision line. Resp: COMMON NORMALS: normal respiratory effort EFFORT & INSPECTION: Yes able to speak in complete sentences Cardio: COMMON NORMALS: regular rate and regular rhythm RATE: regular rate RHYTHM: regular rhythm GI: COMMON NORMALS: non-tender : COMMON NORMALS: Yes no CVA tenderness BLADDER/KIDNEY EXAM: Yes no CVA tenderness Back/Pelvis: COMMON NORMALS: no CVA tenderness and thoracic and lumbar spine normal to inspection Extremity: COMMON NORMALS: normal to inspection Neuro: COMMON NORMALS: patient oriented x3 and moves all extremities Psych: COMMON NORMALS: mental status grossly normal and cooperative Skin: COMMON NORMALS: no rashes or lesions noted GENERAL SKIN EXAM: no rashes or lesions noted Course Vital Signs: Vital signs: Vital Signs Temperature 97.8 F 04/28/20 12:47 Pulse Rate 82 04/28/20 13:59 Respiratory Rate 16 04/28/20 13:59 Blood Pressure 94/52 04/28/20 13:59 Pulse Oximetry 97 04/28/20 13:59 MDM - General Adult MDM Narrative: Medical decision making narrative: Patient presented today for drainage from his [place] catheter for a pleural effusion. Nursing did the drainage and got approximately 50 mL's of serosanguineous fluid. Repeat chest x-ray noted no significant change. Vital signs were normal. Differential diagnosis includes but not limited to malignant pleural effusion, lung cancer. Patient is to return in 2 days for repeat drainage from catheter. Patient at this time has a barrier to care due to his lack of insurance. Patient has an appointment to see Dr. Bright, welder apprentice combination, on Sunday of next week. Patient should return to the ER earlier for high fever or new concerns Discharge Plan Discharge Patient Disposition: Home, Self-Care Clinical Impression: Malignant pleural effusion Condition: Stable Prescriptions: No Action No Known Home Medications RF: 0 Discharge Orders: Discharge Order (Routine); Ordered 04/28/20 Ordered By: Wilbert Heredia Discharge Diet: Usual diet Discharge Activity: Increase activity as tolerated Activity Restrictions/Additional Instructions: Continue with recommendations for treatment as directed. Return to the ER for high fever or new concerns. Coding Level of Care Code ED Lead Medical Technologist for Leonila Fwd Exam Comprehensive
[2020-04-28 13:59] VITALS: BP 94/52; PULSE 82; RESP 16; O2SAT 97
--- NOTE | 2020-04-28 14:03 | XR_ITS ---
WS: [id number] XR chest 1V portable [id number] REASON FOR EXAM: pleural effusion FINDINGS: This study again was compared to April 26, 2020 and shows similar left pleural effusion uncha nged. A drainage tube appears to be evident in this area. There is a mass seen in the right mid chest again noted. The hilum and apices are normal. XR/XR chest 1V portable [id number] IMPRESSION: Left pleural effusion with a drain tube in the left lower lung. Neoplasms continues to be suspicious in the mid right chest.
--- NOTE | 2020-04-28 14:04 | PC.NURSE ---
melvina drain in left lateral chest wall accessed using melvina drain kit, finishing technician used 50cc serosagenous color drainage out. new cap applied and clamp using finishing technician new dressing applied pt nick procedure well. no complaints celestino watson np notified of results. cxr to be ordered
[2020-04-28 14:50] VITALS: BP 101/68; PULSE 82; RESP 16; TEMP 36.9; O2SAT 96
--- NOTE | 2020-04-29 13:42 | DCPLANNER ---
04.28.20 manager corporate strategy was asked about home health for patient, nurse outreach case manager told ED physician that an order for home health had been placed by Dr. Mc. manager corporate strategy called Aguilar with [facility] to see if patient was going to get signed up for services with their agency. manager corporate strategy was told that they would not be able to handle patients needs at this time. manager corporate strategy called out patient surgery to see if it could be set up for patient to have his melvina drain, drained in out patient surgery. manager corporate strategy was told that patient could have it drained in out patient surgery, they would need an order from Dr. Mc for this. manager corporate strategy called [facility], spoke with Gisele, asked her if she could ask Dr. Mc to place an order for patient to go to outpatient surgery to have the procedure completed. 04.29.20 manager corporate strategy called [facility], spoke with Gisele, asked if an order had been placed for outpatient surgery for patient to have the procedure completed. manager corporate strategy was told that an order had been placed for patient to go to outpatient surgery for the procedure.
== END 2020-04-28 14:53 | disposition home or self-care (01) ==
PROVIDERS: Emergency Provider Nurse Practitioner Family
DX: C80.1 Malignant (primary) neoplasm, unspecified (principal); J91.0 Malignant pleural effusion; Z87.891 Personal history of nicotine dependence
CPT/HCPCS: 12345; 71045; 99281; 99283

== ENCOUNTER 2020-04-30 12:55 | Emergency (ER) | payer SELFPAY ==
[2020-04-30 13:00] VITALS: BP 89/66; PULSE 106; RESP 36; TEMP 36.7; O2SAT 95
[2020-04-30 13:37] LABS: Basophils # 0.1 10^3/uL (0.0-0.1); Basophils % 0.5 %; Eosinophils # 0.1 10^3/uL (0.0-0.8); Eosinophils % 0.9 %; Hemoglobin 9.3 g/dL (11.7-16.6); Lymphocytes # 1.1 10^3/uL (0.8-4.8); Lymphocytes % 8.6 %; Mean Corpuscular Hemoglobin 30.4 pg (28.0-34.0); Mean Platelet Volume 8.4 fL (7.4-10.4); Monocytes # 1.4 10^3/uL (0.2-0.9); Monocytes % 10.8 %; Neutrophils # 10.3 10^3/uL (1.8-7.7); Neutrophils % 78.4 %; Nucleated Red Blood Cells % 0 %; Platelet Count 277 10^3/cmm (130-400); Red Blood Count 3.06 10^6/uL (4.1-5.3); Red Cell Distribution Width 13.4 % (12.1-15.1); White Blood Count 13.2 10^3/uL (4.0-10.0)
[2020-04-30 13:50] LABS: Alanine Aminotransferase 11 U/L (0-41); Albumin Level 2.8 g/dL (3.5-5.2); Alkaline Phosphatase 70 IU/L (40-130); Anion Gap 13.8 (5-19); Aspartate Amino Transferase 13 U/L (0-40); Blood Urea Nitrogen 9 mg/dL (8-23); Calcium 8.5 mg/dL (8.5-10.5); Carbon Dioxide 29 mmol/L (22-29); Chloride 101 mmol/L (98-107); Glomerular Filtration Rate 167.9 mL/min (90-130); Glucose 114 mg/dL (65-115); Osmolality Calculated 287 mOsm/kg (285-295); Potassium 3.8 mmol/L (3.5-5.1); Sodium 140 mmol/L (136-145); Total Bilirubin 0.2 mg/dL (0.15-1.2); Total Protein 5.8 g/dL (6.6-8.7)
[2020-04-30 14:19] VITALS: BP 95/60; PULSE 99; RESP 20; O2SAT 94
--- NOTE | 2020-04-30 14:30 | PC.NURSE ---
[place] drained attempted to be drained at this time by SANDIP Dean. A few drops drained using the melvina drainage system. Dr. Green notified at this time. Dr. Green called Dr. Mc.
--- NOTE | 2020-04-30 14:42 | W.ED.SOB ---
HPI - SOB/Dyspnea General: Chief Complaint: Shortness of Breath/Dyspnea Stated Complaint: FLUID BUILD UP Time Seen by Provider: 04/30/20 13:05 History of Present Illness: HPI Narrative: This patient is a 64-year-old male who comes in today to have fluid drained from his left chest. He was seen here just about a week ago and diagnosed with lung cancer with a large left pleural effusion. He had a drain put in and has been coming back initially daily now every other day to have it drained. He is overall doing fairly well but does admit that he is a little more short of breath and tired today than he has been over the past few days. He says he does not sleep well and wonders if that is why. He feels a little congested but does not feel like he is had a fever. He has had a chronic cough. He is not having any chest pain related to the drain. He is having to come to the ER to have the fluid drained because he does not have insurance and so cannot get home health care and cannot go to the outpatient surgery center. He has an appointment again with Dr. Mc on Sunday. MD elicited complaint: shortness of breath and cough Pertinent past history: other (Recently diagnosed lung malignancy with pleural effusion) Onset (ago): week(s) Associated symptoms: Deny fever(s) Review of Systems Const: Reports: change in weight; Denies: fever(s) or chills Resp: Reports: dyspnea and productive cough [facility] ED PFSH: Social History Smoking and tobacco status: former smoker Quit status (tobacco): has quit using tobacco Year quit tobacco: 2019 - 1.5 PPD x 45 Years Alcohol intake: current Alcohol intake frequency: holidays/special occasions only Lives independently: Yes Household members: none Marital status: Current occupational status: employed Current occupation: Self-Employed History of recent travel: No Current gender identity: Male Physical Exam Const: COMMON NORMALS: no acute distress, patient oriented x3, no limitations and alert GENERAL APPEARANCE: cooperative and comfortable HENMT: HEAD & SCALP: normal to inspection FACE & SINUS: normal facial exam Eye: GENERAL EYE: appearance normal, both eyes and all related structures Neck/C-Spine: COMMON NORMALS: supple, no meningeal signs and no JVD Chest: COMMONS NORMALS: normal inspection of the chest Resp: COMMON NORMALS: normal respiratory effort and clear to auscultation bilaterally EFFORT & INSPECTION: Yes tachypneic AUSCULTATION: clear to auscultation bilaterally Cardio: COMMON NORMALS: no JVD, regular rhythm and No murmurs present (Cardio) RATE: tachycardic RHYTHM: regular rhythm GI: COMMON NORMALS: Normal to inspection, nondistended, normoactive bowel sounds present, Soft to palpation and non-tender INSPECTION: Yes normal to inspection AUSCULTATION: Yes normoactive bowel sounds PALPATION: Yes Soft to palpation Back/Pelvis: COMMON NORMALS: thoracic and lumbar spine normal to inspection Extremity: COMMON NORMALS: normal to inspection Neuro: COMMON NORMALS: patient oriented x3, moves all extremities, no focal motor deficits and no sensory deficits noted SENSORIUM/ORIENTATION: Yes alert MENINGEAL SIGNS: Yes no meningeal signs Psych: COMMON NORMALS: mental status grossly normal, cooperative and normal affect Skin: COMMON NORMALS: no rashes or lesions noted and turgor normal GENERAL SKIN EXAM: no rashes or lesions noted and turgor normal Course ED course: Initial attempts to drain through the Pleurx were unsuccessful. The nurses were able to flush it with some sterile saline and felt as though the drain was patent. Only about 20 cc total was obtained back out of the catheter including some clotted blood. I discussed with the patient that I felt like we had not adequately drained his chest today. I am also concerned because his heart rate is higher than it has been on his last few visits and his blood pressure is lower. Discussed that these could be signs of infection but he has no fever. We also discussed that his fatigue and shortness of breath could be related to decreasing hemoglobin but it is not dangerously low. I suggested that we admit him to the hospital due to my concerns about his vital signs and just generally looking a little bit worse today. He again refuses to stay in the hospital. I completely understand his point of view. He is planning to return on Sunday for another attempt to drain fluid and will see how he is doing at that time. Dr. Mc is not available in the hospital today. The patient understands that he needs to return if he is feeling worse or develops fever. Vital Signs: Vital signs: Vital Signs Temperature 98.1 F 04/30/20 13:00 Pulse Rate 99 04/30/20 14:19 Respiratory Rate 20 H 04/30/20 14:19 Blood Pressure 95/60 04/30/20 14:19 Pulse Oximetry 94 04/30/20 14:19 MDM - SOB/Dyspnea Lab Data: Labs: Lab Results 04/30/20 04/30/20 Range/Units 13:28 13:28 WBC 13.2 H (4.0-10.0) 10^3/ uL RBC 3.06 L (4.1-5.3) 10^6/u L Hgb 9.3 L (11.7-16.6) g/dL Hct 30.0 L (42.0-52.0) % MCV 98.0 H (80-94) fL MCH 30.4 (28.0-34.0) pg MCHC 31.0 (30.0-36.0) g/dL RDW 13.4 (12.1-15.1) % Plt Count 277 (130-400) 10^3/c mm MPV 8.4 (7.4-10.4) fL Neut % (Auto) 78.4 % Lymph % (Auto) 8.6 % Collin % (Auto) 10.8 % Eos % (Auto) 0.9 % Baso % (Auto) 0.5 % Neut # (Auto) 10.3 H (1.8-7.7) 10^3/u L Lymph # (Auto) 1.1 (0.8-4.8) 10^3/u L Collin # (Auto) 1.4 H (0.2-0.9) 10^3/u L Eos # (Auto) 0.1 (0.0-0.8) 10^3/u L Baso # (Auto) 0.1 (0.0-0.1) 10^3/u L Nucleated RBC % (a uto) 0 % Nucleated RBCs # 0.0 /100WBC Sodium 140 (136-145) mmol/L Potassium 3.8 (3.5-5.1) mmol/L Chloride 101 (98-107) mmol/L Carbon Dioxide 29 (22-29) mmol/L Anion Gap 13.8 (5-19) BUN 9 (8-23) mg/dL Creatinine 0.5 L (0.7-1.2) mg/dL GFR Calculation 167.9 H (90-130) mL/min Glucose 114 (65-115) mg/dL Calculated Osmolal ity 287 (285-295) mOsm/k g Calcium 8.5 (8.5-10.5) mg/dL Total Bilirubin 0.2 (0.15-1.2) mg/dL AST 13 (0-40) U/L ALT 11 (0-41) U/L Alkaline Phosphata se 70 (40-130) IU/L Total Protein 5.8 L (6.6-8.7) g/dL Albumin 2.8 L (3.5-5.2) g/dL Globulin 3.0 (1.3-4.6) g/dL Discharge Plan Discharge Patient Disposition: Home, Self-Care Clinical Impression: Large pleural effusion Condition: Stable Prescriptions: No Action No Known Home Medications RF: 0 Discharge Orders: Discharge Order (Routine); Ordered 04/30/20 Ordered By: Kusum Green Referrals: Fiona Mc MD [Physician] - 05/04/20 Discharge Diet: Usual diet Discharge Activity: Resume usual activity Patient Instructions: Pleural Effusion (ED) Activity Restrictions/Additional Instructions: Please return to the ER immediately if you have increasing shortness of breath, fever, chest pain or any other new or concerning symptoms. Return as planned on Sunday so we can drain any fluid that has recollected. Coding Level of Care Code ED Butter Production Supervisor for Leonila Fwd Exam Comprehensive
--- NOTE | 2020-04-30 14:57 | XR_ITS ---
WS: [id number] PORTABLE CHEST HISTORY: pleural effusion COMPARISON: 04/28/2020 Moderate size LEFT pleural effusion is similar to the prior study. Significant improvement compared t o the CT of 04/23/2020. There is probably at least a small loculated component of the effusion. New mi ld venous congestion throughout the LEFT lung. RIGHT lung is hyperexpanded. Spiculated irregular mass measuring 2.2 cm in the central RIGHT lung. There is a chest tube present at the LEFT lung base. Cardiac size: Obscured by the effusion. Mediastinum/Aorta: Normal mediastinum. No osseous abnormality seen. XR/XR chest 1V portable [id number] IMPRESSION: 1. Moderate LEFT pleural effusion. There is a small bore LEFT thoracostomy tub e at the LEFT lung base. 2. Mild venous congestion LEFT lung. 3. Spiculated nodule RIGHT upper lobe measures 2.2 cm has been described previ ously consistent with neoplasm most likely.
--- NOTE | 2020-04-30 15:58 | PC.NURSE ---
Patients [place] drain flushed by SANDIP Esquivel at this time per Dr. Green. 20 mLs flushed into the drain and only 23 mL pulled back out of the drain. Dr. Green notified.
[2020-04-30 17:02] VITALS: BP 106/75; PULSE 101; RESP 20; O2SAT 96
--- NOTE | 2020-05-03 10:19 | DCPLANNER ---
late entry - case operator called [facility] to see if they had received an order for patient to go to out patient surgery to have his [place] drain, drained. retail manager in training was told that out patient surgery does not have an order for patient to have it drained. retail manager in training then called [facility], to confirm that an order had been put in by Dr. Mc. retail manager in training was unable to speak with anyone at this time, and left a message on the nurse line to be called back. By the time that case operator had left, case operator did not receive a phone call back. 05.03.20 - case operator called [facility], spoke with Gisele, was told that there is an order for patient to have his [place] drain, drained at out patient surgery in patients chart. retail manager in training asked if she could fax it to out patient surgery so that they would have that order so patient could go there to have it drained. Gisele stated that she would fax the order to out patient surgery.
== END 2020-04-30 17:02 | disposition home or self-care (01) ==
PROVIDERS: Emergency Provider Emergency Medicine
DX: J90 Pleural effusion, not elsewhere classified (principal); Z87.891 Personal history of nicotine dependence
CPT/HCPCS: 12345; 36415; 71045; 80053; 85025; 99281; 99283

== ENCOUNTER 2020-05-01 09:37 | Emergency (ER) | payer SELFPAY ==
[2020-05-01 09:48] VITALS: BP 98/72; PULSE 115; RESP 20; TEMP 36.7; O2SAT 94
--- NOTE | 2020-05-01 09:51 | XRR_ITS ---
PROCEDURE INFORMATION: Exam: XR Chest, 1 View Exam date and time: 05/01/2020 9:52 AM Age: 64 years old Clinical indication: Other: Pleural effusion TECHNIQUE: Imaging protocol: XR of the chest Views: 1 view. COMPARISON: NC XR chest 1V portable [id number] 04/30/2020 3:00 PM FINDINGS: Tubes, catheters and devices: Left pleural tube unchanged. Lungs: Left lower lobe consolidation, unchanged. Pleural space: Left pleural effusion with loculated component unchanged. Right lung mass redemonstrated. Heart/Mediastinum: Partially obscured, no the the cardiomegaly. Bones/joints: No acute findings. XR/XR chest 1V portable [id number] IMPRESSION: No interval change since 04/30/2020.
[2020-05-01 10:37] VITALS: BP 112/73; PULSE 71; RESP 17; O2SAT 97
[2020-05-01] MEDS: alteplase 1 mg/mL SDV 2 mL 2 MG INTRACATH (11:35)
--- NOTE | 2020-05-01 11:35 | W.ED.SOB ---
HPI - SOB/Dyspnea General: Chief Complaint: Shortness of Breath/Dyspnea Stated Complaint: SOB Time Seen by Provider: 05/01/20 09:48 History of Present Illness: HPI Narrative: This patient is a 64-year-old male presenting today with worsening shortness of breath. He was seen in the ER last week and diagnosed with new onset left pleural effusion related to a neoplasm in his chest. Dr. Mc placed a drainage tube and he has been returning to the ED to have it drained. He was here yesterday but we were not able to get much out. He declined to be admitted to the hospital. He was little tachycardic and borderline hypotensive yesterday but again, did not want to be admitted. He was scheduled to return on Sunday but came back today because he felt he was getting worse. No fever, slightly increased cough. MD elicited complaint: shortness of breath and cough Pertinent past history: other (Lung cancer with effusion) Associated symptoms: Deny fever(s) Review of Systems Const: Reports: change in weight; Denies: fever(s) or chills Resp: Reports: dyspnea and productive cough Neuro: Denies: headache(s) Endo: Reports: tired all the time [facility] ED PFSH: Social History Smoking and tobacco status: former smoker Quit status (tobacco): has quit using tobacco Year quit tobacco: 2020 - 1.5 PPD x 45 Years Alcohol intake: current Alcohol intake frequency: holidays/special occasions only Lives independently: Yes Household members: none Marital status: Current occupational status: employed Current occupation: Self-Employed History of recent travel: No Current gender identity: Male Physical Exam Const: COMMON NORMALS: no acute distress, patient oriented x3, no limitations and alert GENERAL APPEARANCE: cooperative and comfortable HENMT: HEAD & SCALP: normal to inspection FACE & SINUS: normal facial exam Eye: GENERAL EYE: appearance normal, both eyes and all related structures Neck/C-Spine: COMMON NORMALS: supple, no meningeal signs and no JVD Chest: COMMONS NORMALS: normal inspection of the chest Resp: EFFORT & INSPECTION: Yes tachypneic and Yes uses accessory muscles AUSCULTATION: breath sounds absent on th left Cardio: COMMON NORMALS: no JVD, regular rate, regular rhythm and No murmurs present (Cardio) RATE: regular rate RHYTHM: regular rhythm GI: COMMON NORMALS: Normal to inspection, nondistended, normoactive bowel sounds present, Soft to palpation and non-tender INSPECTION: Yes normal to inspection AUSCULTATION: Yes normoactive bowel sounds PALPATION: Yes Soft to palpation Back/Pelvis: COMMON NORMALS: thoracic and lumbar spine normal to inspection Extremity: COMMON NORMALS: normal to inspection Neuro: COMMON NORMALS: patient oriented x3, moves all extremities, no focal motor deficits and no sensory deficits noted SENSORIUM/ORIENTATION: Yes alert MENINGEAL SIGNS: Yes no meningeal signs Psych: COMMON NORMALS: mental status grossly normal, cooperative and normal affect Skin: COMMON NORMALS: no rashes or lesions noted and turgor normal GENERAL SKIN EXAM: no rashes or lesions noted and turgor normal Course ED course: After TPA in the drain - we were able to get a good amount of fluid and the patient clinically looks like he is feeling better. Now joking around again. Still draining at this time. Reevaluation(s): Reevaluation #1: Feeling somewhat better. Drained 650 mL's. Fluid was bloody. He will return to the ED on an as-needed basis for shortness of breath and will follow up with Dr. Mc as scheduled. Vital Signs: Vital signs: Vital Signs Temperature 98.1 F 05/01/20 09:48 Pulse Rate 72 05/01/20 16:25 Respiratory Rate 18 05/01/20 16:25 Blood Pressure 125/74 05/01/20 16:25 Pulse Oximetry 98 05/01/20 16:25 Discharge Plan Discharge Patient Disposition: Home, Self-Care Clinical Impression: Large pleural effusion Condition: Stable Prescriptions: No Action albuterol sulfate 90 mcg/actuation HFA aerosol inhaler 2 puff INHALATION Q4H PRN (Reason: Shortness Of Breath) RF: 0 Discharge Orders: Discharge Order (Routine); Ordered 05/01/20 Ordered By: Kusum Green Discharge Diet: Usual diet Discharge Activity: Resume usual activity Activity Restrictions/Additional Instructions: Return to the ED if you feel like you have increasing shortness of breath, fever, chest pain. Otherwise just follow-up with Dr. Mc on Sunday as scheduled. Discharge Date/Time: 05/01/20 16:30 Coding Level of Care Code ED High Value Associate for Chg Fwd Exam Comprehensive
[2020-05-01 12:15] VITALS: BP 108/74; PULSE 81; RESP 17; O2SAT 98
[2020-05-01 15:02] VITALS: BP 116/65; PULSE 72; RESP 18; O2SAT 96
[2020-05-01 16:25] VITALS: BP 125/74; PULSE 72; RESP 18; O2SAT 98
== END 2020-05-01 16:30 | disposition home or self-care (01) ==
PROVIDERS: Emergency Provider Emergency Medicine
DX: J90 Pleural effusion, not elsewhere classified (principal); Z87.891 Personal history of nicotine dependence
CPT/HCPCS: 12345; 71045; 96365; 96366; 96375; 99282; 99284; J2997; P9047

== ENCOUNTER 2020-05-04 13:40 | Emergency (ER) | payer SELFPAY ==
[2020-05-04 13:41] VITALS: BP 104/65; PULSE 108; RESP 20; TEMP 36.6; O2SAT 92; BMI 18.8
--- NOTE | 2020-05-04 13:52 | XRR_ITS ---
PROCEDURE INFORMATION: Exam: XR Chest, 1 View Exam date and time: 05/04/2020 2:15 PM Age: 64 years old Clinical indication: Cough and dyspnea; Additional info: Dyspnea/cough, fluid build-up TECHNIQUE: Imaging protocol: XR of the chest Views: 1 view. COMPARISON: CR (CHEST, ) 05/01/2020 10:14 AM FINDINGS: Lungs: 2.8 cm nodular density again demonstrated overlying the right perihilar region, suggesting neoplasm. Hyperinflation. Extensive left-sided airspace disease and pleural effusion obscuring the left heart border left hemidiaphragm. Heart/Mediastinum: Suspected left hilar/mediastinal lymphadenopathy. Other: Left pleural catheter again demonstrated. XR/XR chest 1V portable [id number] IMPRESSION: 1. 2.8 cm nodular density again demonstrated overlying the right perihilar region, suggesting neoplasm. 2. Extensive left-sided airspace disease and pleural effusion obscuring the left heart border left hemidiaphragm.
[2020-05-04 14:22] LABS: Basophils # 0.1 10^3/uL (0.0-0.1); Basophils % 0.6 %; Eosinophils # 0.2 10^3/uL (0.0-0.8); Eosinophils % 1.2 %; Hematocrit 30.3 % (42.0-52.0); Hemoglobin 9.2 g/dL (11.7-16.6); Lymphocytes # 1.3 10^3/uL (0.8-4.8); Lymphocytes % 7.8 %; Mean Corpuscular HGB Conc 30.4 g/dL (30.0-36.0); Mean Corpuscular Volume 98.7 fL (80-94); Mean Platelet Volume 8.2 fL (7.4-10.4); Monocytes # 1.7 10^3/uL (0.2-0.9); Monocytes % 9.8 %; Neutrophils # 13.6 10^3/uL (1.8-7.7); Neutrophils % 79.9 %; Nucleated Red Blood Cells % 0 %; Platelet Count 386 10^3/cmm (130-400); Red Blood Count 3.07 10^6/uL (4.1-5.3); Red Cell Distribution Width 13.7 % (12.1-15.1); White Blood Count 17.1 10^3/uL (4.0-10.0)
[2020-05-04 14:35] LABS: Alanine Aminotransferase 10 U/L (0-41); Albumin Level 2.9 g/dL (3.5-5.2); Alkaline Phosphatase 83 IU/L (40-130); Anion Gap 12.4 (5-19); Aspartate Amino Transferase 11 U/L (0-40); Blood Urea Nitrogen 15 mg/dL (8-23); Calcium 8.4 mg/dL (8.5-10.5); Carbon Dioxide 28 mmol/L (22-29); Chloride 103 mmol/L (98-107); Globulin 3.3 g/dL (1.3-4.6); Glomerular Filtration Rate 136.1 mL/min (90-130); Glucose 98 mg/dL (65-115); Lipase 18 U/L (13-60); Osmolality Calculated 284 mOsm/kg (285-295); Potassium 4.4 mmol/L (3.5-5.1); Sodium 139 mmol/L (136-145); Total Bilirubin 0.2 mg/dL (0.15-1.2); Total Protein 6.2 g/dL (6.6-8.7)
[2020-05-04 14:39] LABS: Lactate (Lactic Acid level) 1.1 mmol/L (0.5-2.2)
[2020-05-04 14:42] LABS: Add Urine Microscopic? YES; Bilirubin Urine Neg (NEGATIVE); Blood Urine Neg (Negative); Glucose Urine UA Norm (Normal); Ketones Urine Negative (Negative); Leukocyte Esterase Urine Negative (Negative); Nitrate Urine Negative (Negative); Protein Urine Trace (Negative); Urine Appearance Clear (CLEAR); Urine Color Yellow (Yellow); Urobilinogen Urine Norm (Negative); pH Urine 5 (5-7)
[2020-05-04 14:43] LABS: RBC Urine 0-4 /hpf (0-2); WBC Urine 0-4 /hpf (0-5)
[2020-05-04 14:44] LABS: Add Urine Culture? No; Bacteria Urine TRACE; Mucus Urine 3+; Squamous Epithelial Cell Urine 0-4 (0-5)
--- NOTE | 2020-05-04 14:55 | ED_ITS ---
HPI - SOB/Dyspnea General: Chief Complaint: Shortness of Breath/Dyspnea Stated Complaint: fluid bulid up Time Seen by Provider: 05/04/20 13:41 History of Present Illness: HPI Narrative: 64-year-old male comes in complaining of shortness of breath that began Sunday has not had a fever he does have a cough is mild nonproductive. He has had a thoracentesis no suspecting cancer but evidently diagnosis has not been confirmed. He had recurrent pleural effusions and now has a [place] drain on the left he was sent here by Dr. Mc. It looks like there may have been some confusion looking through his history I think he was feels a good outpatient surgery and have this done in just a routine drainage but nevertheless he ended up here in the emergency room he denies having any chest pain now. He has had this drained several times before. Did call Dr. Mc he asked that we just go ahead and drain it while the patient is here. MD elicited complaint: shortness of breath and cough Pertinent past history: COPD and other (Lung CA) Onset (ago): day(s) Context: recent illness Timing: constant Severity: severe Exacerbating factors: lying flat and exertion Relieving factors: oxygen, rest and upright position Known history of: COPD and other Associated symptoms: Reports chest congestion and cough; Deny abdominal pain, chest pain, diaphoresis, dizziness, extremity pain, fever(s), hemoptysis, lightheadedness, myalgias, nausea, orthopnea, palpitations, paresthesias, polydipsia, polyuria, rash, sense of impending doom, syncope, vomiting or other Treatment prior to arrival: none Review of Systems Const: Denies: fever(s) or diaphoresis ENMT: Denies: throat pain, ear or mastoid pain, nasal discharge or nasal congestion Card: Denies: chest pain, palpitations, lightheadedness, syncope or orthopnea Resp: Reports: dyspnea, non-productive cough and chest congestion; Denies: hemoptysis GI: Denies: abdominal pain, nausea or vomiting : Denies: flank pain, dysuria, urinary frequency or urinary urgency Musc: Denies: extremity pain Skin/Breast: Denies: rash or pruritus Neuro: Denies: dizziness Endo: Denies: polyuria or polydipsia PFS ED PFSH: Social History Smoking and tobacco status: current every day smoker Quit status (tobacco): has quit using tobacco Year quit tobacco: 2020 - 1.5 PPD x 45 Years Alcohol intake: current Alcohol intake frequency: holidays/special occasions only Lives independently: Yes Household members: none Marital status: Current occupational status: employed Current occupation: Self-Employed History of recent travel: No Current gender identity: Male Physical Exam Const: COMMON NORMALS: no acute distress GENERAL APPEARANCE: cooperative and comfortable ORIENTATION/CONSCIOUSNESS: Yes awake, Yes oriented to person, Yes oriented to place and Yes oriented to time HENMT: COMMON NORMALS: normocephalic, atraumatic, hearing grossly normal bilaterally, external ears normal, EAC's normal, TM's normal bilaterally, Normal nasal mucous membranes and turbinates present, moist oral mucous membranes and oropharynx normal HEAD & SCALP: normocephalic and atraumatic NOSE: Normal nasal mucous membranes and turbinates present EXTERNAL EAR: Yes external ears normal EXTERNAL AUDITORY CANAL: EAC's normal TYMPANIC MEMBRANE: TM's normal bilaterally Eye: COMMON NORMALS: Equal, round and reactive pupils present, EOMs intact bilaterally, conjunctivae normal and no scleral icterus CONJUNCTIVA: Yes conjunctivae normal PUPIL: Yes Equal, round and reactive pupils present Neck/C-Spine: COMMON NORMALS: full ROM, no lymphadenopathy, supple and no JVD Lymph: LYMPHATIC: no lymphadenopathy noted and no lymphedema noted Resp: COMMON NORMALS: normal respiratory effort, No retractions and No use of accessory muscles AUSCULTATION: diminished lung sounds (Egophony with breath sounds decreased in the lower half of the left lung field) on the left PERCUSSION: dullness Mid: left Cardio: COMMON NORMALS: no JVD, regular rate, regular rhythm and No murmurs present (Cardio) RATE: regular rate RHYTHM: regular rhythm GI: COMMON NORMALS: Soft to palpation and No hepatosplenomegaly present AUSCULTATION: Yes normoactive bowel sounds PALPATION: Yes Soft to palpation, No Tenderness to palpation present (GI), No Guarding due to palpation present (GI) and Yes No hepatosplenomegaly present Extremity: COMMON NORMALS: normal to inspection, capillary refill normal, no clubbing, cyanosis or edema, no calf tenderness and no pedal edema Neuro: SENSORIUM/ORIENTATION: Yes oriented to person, Yes oriented to place and Yes oriented to time Skin: COMMON NORMALS: no rashes or lesions noted GENERAL SKIN EXAM: no rashes or lesions noted Course Vital Signs: Vital signs: Vital Signs Temperature 97.8 F 05/04/20 13:41 Pulse Rate 78 05/04/20 16:49 Respiratory Rate 22 H 05/04/20 16:49 Blood Pressure 115/75 05/04/20 16:49 Pulse Oximetry 95 05/04/20 16:49 MDM - SOB/Dyspnea MDM Narrative: Medical decision making narrative: Patient initially supposed to go to outpatient scheduled [place] drain release since he was here and will reviewing the chart he previous had some trouble getting it released and drained well we went ahead and hooked him up here we only get about 50 mils out on ultrasound were able to identify that it looks the fluid is loculated in several pockets which is why it is not coming out we had considered adding TPA again but given the ultrasound findings we decided not to pursue it I did discuss with Dr. Mc he came down and also ultrasound and confirmed he is getting canceled the outpatient [place] drain treatment in 2 days and look at doing a fine-needle aspiration of some of those areas for both diagnostic and therapeutic purposes a small amount of fluid that was drained today was submitted to the lab for pathology since they still do not have a good pathology specimen on this drainage evidently. Patient was discharged home after discussion of these issues. Lab Data: Labs: Lab Results 05/04/20 05/04/20 05/04/20 Range/Units 14:08 14:15 14:15 WBC 17.1 H (4.0-10.0) 10^3/ uL RBC 3.07 L (4.1-5.3) 10^6/u L Hgb 9.2 L (11.7-16.6) g/dL Hct 30.3 L (42.0-52.0) % MCV 98.7 H (80-94) fL MCH 30.0 (28.0-34.0) pg MCHC 30.4 (30.0-36.0) g/dL RDW 13.7 (12.1-15.1) % Plt Count 386 (130-400) 10^3/c mm MPV 8.2 (7.4-10.4) fL Neut % (Auto) 79.9 % Lymph % (Auto) 7.8 % [place] % (Auto) 9.8 % Eos % (Auto) 1.2 % Baso % (Auto) 0.6 % Neut # (Auto) 13.6 H (1.8-7.7) 10^3/u L Lymph # (Auto) 1.3 (0.8-4.8) 10^3/u L [place] # (Auto) 1.7 H (0.2-0.9) 10^3/u L Eos # (Auto) 0.2 (0.0-0.8) 10^3/u L Baso # (Auto) 0.1 (0.0-0.1) 10^3/u L Nucleated RBC % (a uto) 0 % Nucleated RBCs # 0.0 /100WBC Sodium 139 (136-145) mmol/L Potassium 4.4 (3.5-5.1) mmol/L Chloride 103 (98-107) mmol/L Carbon Dioxide 28 (22-29) mmol/L Anion Gap 12.4 (5-19) BUN 15 (8-23) mg/dL Creatinine 0.6 L (0.7-1.2) mg/dL GFR Calculation 136.1 H (90-130) mL/min Glucose 98 (65-115) mg/dL Calculated Osmolal ity 284 L (285-295) mOsm/k g Lactate (0.5-2.2) mmol/L Calcium 8.4 L (8.5-10.5) mg/dL Total Bilirubin 0.2 (0.15-1.2) mg/dL AST 11 (0-40) U/L ALT 10 (0-41) U/L Alkaline Phosphata se 83 (40-130) IU/L Total Protein 6.2 L (6.6-8.7) g/dL Albumin 2.9 L (3.5-5.2) g/dL Globulin 3.3 (1.3-4.6) g/dL Lipase 18 (13-60) U/L Urine Color Yellow (Yellow) Urine Appearance Clear (CLEAR) Urine pH 5 (5-7) Ur Specific Gravit y 1.020 (1.005-1.030) Urine Protein Trace (Negative) Urine Glucose (UA) Norm (Normal) Urine Ketones Negative (Negative) Urine Blood Neg (Negative) Urine Nitrate Negative (Negative) Urine Bilirubin Neg (NEGATIVE) Urine Urobilinogen Norm (Negative) mg/dL Ur Leukocyte Francesca ase Negative (Negative) Urine RBC 0-4 H (0-2) /hpf Urine WBC 0-4 H (0-5) /hpf Ur Squamous Epith Cells 0-4 H (0-5) Calcium Oxalate Cr ystal 10-15 H /hpf Urine Bacteria Trace (NONE) Urine Mucus 3+ 06/08/15 Range/Units 14:15 WBC (4.0-10.0) 10^3/ uL RBC (4.1-5.3) 10^6/u L Hgb (11.7-16.6) g/dL Hct (42.0-52.0) % MCV (80-94) fL MCH (28.0-34.0) pg MCHC (30.0-36.0) g/dL RDW (12.1-15.1) % Plt Count (130-400) 10^3/c mm MPV (7.4-10.4) fL Neut % (Auto) % Lymph % (Auto) % [place] % (Auto) % Eos % (Auto) % Baso % (Auto) % Neut # (Auto) (1.8-7.7) 10^3/u L Lymph # (Auto) (0.8-4.8) 10^3/u L [place] # (Auto) (0.2-0.9) 10^3/u L Eos # (Auto) (0.0-0.8) 10^3/u L Baso # (Auto) (0.0-0.1) 10^3/u L Nucleated RBC % (a uto) % Nucleated RBCs # /100WBC Sodium (136-145) mmol/L Potassium (3.5-5.1) mmol/L Chloride (98-107) mmol/L Carbon Dioxide (22-29) mmol/L Anion Gap (5-19) BUN (8-23) mg/dL Creatinine (0.7-1.2) mg/dL GFR Calculation (90-130) mL/min Glucose (65-115) mg/dL Calculated Osmolal ity (285-295) mOsm/k g Lactate 1.1 (0.5-2.2) mmol/L Calcium (8.5-10.5) mg/dL Total Bilirubin (0.15-1.2) mg/dL AST (0-40) U/L ALT (0-41) U/L Alkaline Phosphata se (40-130) IU/L Total Protein (6.6-8.7) g/dL Albumin (3.5-5.2) g/dL Globulin (1.3-4.6) g/dL Lipase (13-60) U/L Urine Color (Yellow) Urine Appearance (CLEAR) Urine pH (5-7) Ur Specific Gravit y (1.005-1.030) Urine Protein (Negative) Urine Glucose (UA) (Normal) Urine Ketones (Negative) Urine Blood (Negative) Urine Nitrate (Negative) Urine Bilirubin (NEGATIVE) Urine Urobilinogen (Negative) mg/dL Ur Leukocyte Francesca ase (Negative) Urine RBC (0-2) /hpf Urine WBC (0-5) /hpf Ur Squamous Epith Cells (0-5) Calcium Oxalate Cr ystal /hpf Urine Bacteria (NONE) Urine Mucus Discharge Plan Discharge Patient Disposition: Home, Self-Care Clinical Impression: Malignant pleural effusion Condition: Stable Prescriptions: No Action albuterol sulfate 90 mcg/actuation HFA aerosol inhaler 2 puff INHALATION Q4H PRN (Reason: Shortness Of Breath) RF: 0 Discharge Orders: Discharge Order (Routine); Ordered 05/04/20 Ordered By: Hu Winchester Discharge Diet: Advance as tolerated Discharge Activity: Increase activity as tolerated Discharge Date/Time: 05/04/20 16:53 Coding Level of Care Code ED Ranch Supervisor for Chg Fwd Exam Comprehensive
--- NOTE | 2020-05-04 16:00 | PC.NURSE ---
Sushil drain accessed. Minimal return noted. EMD notified.
--- NOTE | 2020-05-04 16:06 | DCPLANNER ---
Addendum entered by Harper Godoy 05/05/20 08:43: manager library was told to cancel patients appointment scheduled for April at 10:00 at Out Patient surgery. manager library called out patient and cancelled the appointment. Original Note: manager library called out patient surgery to see if they had received patients order to have the procedure as an out patient, spring encaser was told that the clinic did have the order. An appointment is scheduled for April at 10:00. manager library informed ED physician that patient is to go to out patient surgery on 05.06.20 for the procedure. manager library also informed the patient that he would need to go to outpatient surgery on .
[2020-05-04 16:49] VITALS: BP 115/75; PULSE 78; RESP 22; O2SAT 95
== END 2020-05-04 16:53 | disposition home or self-care (01) ==
PROVIDERS: Emergency Provider Family Medicine
DX: J91.0 Malignant pleural effusion (principal); F17.210 Nicotine dependence, cigarettes, uncomplicated
CPT/HCPCS: 12345; 36415; 71045; 80053; 81001; 83605; 83690; 85025; 99281; 99284

== ENCOUNTER 2020-05-06 09:50 | Outpatient (RCR) | payer SELFPAY ==
[2020-05-06 10:45] VITALS: BMI 18.6
--- NOTE | 2020-05-06 11:01 | XR_ITS ---
WS: [id number] Portable AP upright chest, 05/06/2020 Clinical Data: [place] drain not draining Comparison: Portable chest, 05/04/2020 Findings: The 2.8 cm right lung nodule remains the same. There is a large left effusion unchanged in size. There is opacity in the left upper lobe also unchanged. The right lung shows no effusion. The h eart size is difficult to evaluate because of the obscure aeration of the left heart border. The drai n in the base of the left pleural space remains the same. XR/XR chest 1V portable [id number] Impression: 1. No change in right lung nodule. 2. No change in large left pleural effusion and left lung opacity. 3. No change in position of left base pleural catheter.
[2020-05-06 11:22] VITALS: BP 120/73; PULSE 104; RESP 16; TEMP 36.9; O2SAT 91
--- NOTE | 2020-05-06 11:40 | SUR.PREOP ---
1100 attempted to drain melvina drain and no fluid taken out,call placed to dr mattson and chest xray ordered ,attempting to get 02 for home needs evaluation from respiratory,order put in for this
[2020-05-06 11:52] VITALS: O2SAT 88
--- NOTE | 2020-05-06 12:05 | SUR.PREOP ---
respiratory here and pt to receive home o2,social science teacher called and spoke to jasmina and will set up for home o2
--- NOTE | 2020-05-06 13:57 | SUR.PREOP ---
mandierespiratory therapist with home o2 here and instructed pt on use of home o2
--- NOTE | 2020-05-10 08:18 | SUR.PREOP ---
Patient was scheduled for [place] Drain on Sat. May 08, 2020. Patient was a No Show. I attempted to call patient and was unable to reach. Dr. Mc's office was notified today May 10 that patient did not show and notes are entered that last attempt to drain fluid was zero. Dr. Mc was notfied and a chest xray was ordered and patient was evaluated for home O2. No further orders were entered.
--- NOTE | 2020-05-10 11:23 | SUR.PREOP ---
Addendum entered by Chinyere Soto 05/10/20 12:10: we were unable to drain any fluid from pt on ,informed dr mattson of this and stated that the pt needed to come in to drain pleural drain(melvina)drain if pt is short of breath or having difficulty breathing,will advise pt of this Original Note: pt is a no show today also and spoke with pt and he stated that since we were unable to drain melvina drain on , he didn't see any reason to show up over the weekend or today, i will call and leave message with dr mattson regarding this and pt states that even with o2 that he aquired on , he is still having trouble catching his breath.
== END 2020-05-25 23:59 | disposition home or self-care (01) ==
LOC: GILAB 09:50
PROVIDERS: Visit Provider Internal Medicine Critical Care Medicine
DX: J90 Pleural effusion, not elsewhere classified (principal)
CPT/HCPCS: 71045

== ENCOUNTER 2020-05-11 15:06 | Outpatient (CLI) | payer SELFPAY ==
[2020-05-11 16:52] LABS: Basophils # 0.1 10^3/uL (0.0-0.1); Basophils % 0.5 %; Eosinophils % 0.3 %; Hematocrit 30.5 % (42.0-52.0); Hemoglobin 9.3 g/dL (11.7-16.6); Lymphocytes # 1.1 10^3/uL (0.8-4.8); Lymphocytes % 7.5 %; Mean Corpuscular HGB Conc 30.5 g/dL (30.0-36.0); Mean Corpuscular Volume 98.4 fL (80-94); Mean Platelet Volume 8.6 fL (7.4-10.4); Monocytes # 1.7 10^3/uL (0.2-0.9); Neutrophils # 12.1 10^3/uL (1.8-7.7); Neutrophils % 79.8 %; Nucleated Red Blood Cells % 0 %; Platelet Count 436 10^3/cmm (130-400); Red Cell Distribution Width 14.3 % (12.1-15.1); White Blood Count 15.1 10^3/uL (4.0-10.0)
--- NOTE | 2020-05-11 17:03 | ONC CON_ITS ---
Dr. Johansen New Patient Note Patient: Hu Aguilera Unit #: [id number]: 1955 Dicatated By: Bertarm Johansen M.D.Date of Visit: May 11, 2020 Onc MED New Patient/Consult Referring Physician: Dr. CORINNA MC M.D. History of Present Illness: Mr. Hu Aguilera, is a 64-year-old gentleman with a longstanding history of smoking and chronic cough experienced bronchitis-like symptoms in November 2019, subsequently developed progressive shortness of breath and came [place] [facility] [place] was done which shows extensive left pleural effusion and follow-up CT scan of chest abdomen done on April 23, 2020 showed large left pleural effusion with complete opacification left hemithorax, moderate left right mediastinal shift. Heterogeneous necrotic appearing mass in the left upper lobe extending into the anterior mediastinum and deep to the sternum most consistent with neoplasm with necrotic masslike lymphadenopathy. Additional scattered nodular areas of metastatic implants in the periphery of left lung. Left supraclavicular and infraclavicular lymphadenopathy, left axillary masslike lymphadenopathy. Spiculated mass in the right upper lobe measuring 2.2 x 1.9 cm presumably malignancy. Additional numerous noncalcified nodules throughout the right lung presumably metastatic most of which are subcentimeter in size. Occlusion of left mainstem bronchus. Patient was seen by pulmonology Dr. Mc, patient underwent left thoracentesis on April 23, 2020, about 3 L fluid was removed and cytology came back very atypical cells are present some with atypical mitosis, cells are highly suspicious for malignancy some of cells have prominent nucleoli. The atypical cells are worrisome for malignant process possibly an adenocarcinoma. Further evaluation was recommended by pathologist. Patient underwent further left thoracentesis and about 2 L fluid was removed and subsequently no more drainage, as per pulmonology, there was extensively loculated left pleural effusion seen. Patient underwent CT PET scan on May 08, 2020 which showed there is a triangular anterior left mass with invasion into the mediastinum measuring 8.9 x 7.4 cm with SUV of 21.5. Reticular infiltrate in the left upper lobe is suspicious for carcinomatosis. Right upper lobe spiculated nodule measured 2.1 x 2.3 cm with SUV of 11.3. Additional malignant mediastinal lymph nodes in the left prevascular region with bilateral FDG positive supraclavicular lymph nodes. Uptake along the left pleura is consistent with a pleural implant. Left posterior cervical triangle adenopathy has SUV of 14. There is extensive malignant left axillary and retropectoral nodes with SUV of 15.8. FDG positive left adrenal nodule is consistent with metastatic disease. 2 subcentimeter nodules in the right obturator territory of the pelvis represents distant metastatic disease. There is no finding to indicate osseous metastatic disease and no liver involvement seen. Patient denies any hemoptysis or hematemesis, patient denies any melena or hematochezia, patient denies any jaundice, denies any headaches blurred vision double vision. Patient quit smoking recently. Now complaining of progressive shortness of breath but recently attempted left thoracentesis yield minimum fluid because of loculated pleural effusion and atelectasis of left lung due to loculated pleural effusion as well as occlusion of left mainstem bronchus. Patient never had a colonoscopy or EGD before. Denies any abdominal pain. Denies any hematuria. But about 15 pounds weight loss since November 2019. No dysphagia but poor appetite. Past Medical History: Mr. Aguilera's medical history consists of hernia and obstructive sleep apnea. Past Surgical History: Mr. Aguilera's surgical/procedural history consists of right ankle repair. Medications: Ibuprofen 3 - 4 Tablet (of 200 mg) Oral PRN Allergies: No Known Allergies. 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 Mr. Aguilera quit smoking less than one year ago but had smoked for 45 years. He has no history of drinking. Mr. Aguilera reports the following support systems: lives alone, supportive family/friends willing to assist with needs, and adequate transportation available for expected visits. His diet consists of regular meals. He indicates his activity level as: regular exercise. Family History: Mr. Aguilera's mother at age 53: aneurysm. Mr. Aguilera's father at age 70: leukemia. Review Of Symptoms: Constitutional - Appetite is diminished and weight is decreasing. No fever, night sweats, or hot flashes. Energy level is poor, ENMT - No sinus congestion/drainage. No mouth sores. No sore throat or difficulty swallowing, Hematologic/Lymphatic - No abnormal bruising or bleeding, Respiratory - Positive for shortness of breath and cough. No pleuritic pain or hemoptysis, Cardiovascular - No angina pain. No palpitations, Gastrointestinal - No nausea or vomiting. No heartburn or acid reflux. Positive for diarrhea, no constipation. No blood in the stool or black stools, Genitourinary (M) - No dysuria or hematuria. No urinary frequency. No urgency or incontinence, Musculoskeletal - No joint or bone pain, Neurologic - No headache or dizziness. No numbness or tingling. No other focal neurologic symptoms, Psychiatric - Positive for anxiety and insomnia. Vital Signs: Performed on May 11, 2020 15:21: 3, 19.34, 1.77 sq.m, 70.00 in, 88 % (LOW), 112 /min (HIGH), 22 /min, 100/63 mm(hg), 99.2 F (HIGH), and 134.8 lbs (HIGH). Performance Status: 2 - Ambulatory/capable of all self-care, unable to perform any work activities. Up and about more than 50% of waking hours. (ECOG) Physical Examination: ENMT - No mouth sores, no thrush, no jaundice, Respiratory - No breath sounds heard in the lung bases and in the left lung. Poor air entry in the right lung, Cardiovascular - Regular rate and rhythm of heart, Abdomen - Soft, bowel sounds present, nontender, Extremities - Trace edema bilaterally. Lab/Imaging: Most recent lab results are not available for this patient. Impression: Left pleural effusion, malignant appearing status post left thoracentesis on April 23, 2020, final pathology report showed atypical cell with atypical mitosis, cells are highly suspicious for malignancy. CT PET scan done on May 08, 2020 showed triangular anterior mediastinal/left upper lobe mass, representing malignancy. Malignant mediastinal, left posterior triangle, bilateral supraclavicular, left axillary lymphadenopathy and subcentimeter right pelvic obturator lymph nodes Left pleural effusion with malignant pleural implants. Left adrenal metastatic disease No evidence of liver involvement or bony involvement. Progressive shortness of breath, now on home oxygen because of extensive left lung pathology and pleural effusion now loculated Normocytic anemia could be combined nutritional deficiency or anemia of malignancy or chronic disease Longstanding history of smoking quit recently. Plan: Discussed with patient regarding his CT PET scan reports and left pleural effusion cytology report which showed suspicious cells but not definite diagnosis. CT PET scan shows extensive disease involving bilateral lungs extensive lymphadenopathy involving mediastinum bilateral supraclavicular, left axillary lymphadenopathy, subcentimeter right pelvic obturator lymph nodes but no liver or bone involvement, a somewhat unusual presentation for lung cancer, other possibility could be metastatic disease to the lung. At this point, we will consider lymph node biopsy either from either left supraclavicular or left cervical lymph node as patient has left arm swelling which could be DVT due to compression or lymphedema. We will refer him to surgery for evaluation and for lymph node biopsy to confirm the diagnosis and if it confirm lung being the primary and non-small cell pathology then will consider molecular profiling on the other hand if it shows small cell lung cancer, then will consider treatment immediately as this entity is relatively chemosensitive. On the other hand if lung as a primary not confirmed then will consider cancer type ID to confirm the primary. In the meantime, will consider venous Doppler study of left upper arm to rule out DVT and also consider anemia work-up as is recently done labs on May 04, 2020 showed white blood count 17.1 hemoglobin 9.2 hematocrit 30.3 platelets 386,000 and CMP showed creatinine 0.6 and normal LFTs and calcium. If there is a worsening of shortness of breath and left thoracentesis is not an option, then will consider referral to radiation for evaluation and for palliative radiation therapy. Patient return to clinic in 1 week after the lymph node biopsy for further discussion and plan Signed By: Bertram Johansen M.D. <<Signature on File>>
[2020-05-11 17:07] LABS: Ferritin 298 ng/mL (30-400); Iron 20 ug/dL (59-158); Percent Saturation 11.1 % (20-50); Total Iron Binding Capacity 179 mcg/dl; Unsaturated Iron Binding 159 ug/dL (112-347)
[2020-05-11 17:22] LABS: Vitamin B12 710 pg/mL (232-1245)
[2020-05-11 18:06] LABS: Folate Level 9.1 ng/mL (4.5-32.2)
== END 2020-05-11 15:07 | disposition home or self-care (01) ==
PROVIDERS: Visit Provider Internal Medicine Hematology & Oncology
DX: C80.1 Malignant (primary) neoplasm, unspecified (principal); C79.72 Secondary malignant neoplasm of left adrenal gland; C77.8 Secondary and unspecified malignant neoplasm of lymph nodes of multiple regions; C78.01 Secondary malignant neoplasm of right lung; C78.02 Secondary malignant neoplasm of left lung; M79.89 Other specified soft tissue disorders; J90 Pleural effusion, not elsewhere classified; F17.201 Nicotine dependence, unspecified, in remission; Z99.81 Dependence on supplemental oxygen
CPT/HCPCS: 36415; 82607; 82728; 82746; 83540; 83550; 85025; 99203